=== PATIENT | male | born 1955 | race Caucasian/White ===

== ENCOUNTER 2021-12-26 18:03 | Emergency (ER) | payer MEDICARE ==
[~2021-12-26] VITALS: Ht 185.4 cm; Wt 122.5 kg
== END 2021-12-26 19:52 | disposition home or self-care (01) ==
LOC: ER 18:03
DX: U07.1 COVID-19 (principal)
CPT/HCPCS: 99282

== ENCOUNTER 2022-01-14 18:37 | Emergency (ER) | payer MEDICARE ==
[~2022-01-14] VITALS: Ht 185.4 cm; Wt 122.5 kg
[2022-01-14] MEDS ORDERED: METO100 PO (19:32)
[2022-01-14] MEDS ORDERED: Glucophage 850850 MG PO ×2 (19:32→19:46)
[2022-01-14] MEDS ORDERED: POTCHL20ER PO ×2 (19:33→19:46)
[2022-01-14] MEDS ORDERED: GLIP10 PO ×2 (19:33→19:46)
[2022-01-14] MEDS ORDERED: ATOR80 PO ×2 (19:34→19:46)
[2022-01-14] MEDS ORDERED: EUTHYROX50 MCG PO ×2 (19:34→19:46)
[2022-01-14] MEDS ORDERED: AMIT25 PO ×2 (19:34→19:46)
[2022-01-14] MEDS ORDERED: ZYRTEC10 M2 PO (19:35)
[2022-01-14] MEDS ORDERED: XARELTO20 MG PO (19:35)
[2022-01-14] MEDS ORDERED: Prinivil10 MG PO (19:35)
[2022-01-14] MEDS ORDERED: FURO40 PO (19:35)
[2022-01-14] MEDS ORDERED: LISI10 PO (19:46)
[2022-01-14] MEDS ORDERED: METO100ER PO (19:46)
== END 2022-01-14 20:12 | disposition home or self-care (01) ==
LOC: ER 18:37
DX: Z76.0 Encounter for issue of repeat prescription (principal); E11.9 Type 2 diabetes mellitus without complications; I50.9 Heart failure, unspecified; Z79.899 Other long term (current) drug therapy; Z79.01 Long term (current) use of anticoagulants; Z79.84 Long term (current) use of oral hypoglycemic drugs; Z88.2 Allergy status to sulfonamides
CPT/HCPCS: 99281

== ENCOUNTER 2022-04-06 13:14 | Inpatient (IN) | payer OTHER, MEDICARE ==
[~2022-04-06] VITALS: Ht 185.4 cm; Wt 125.5 kg
[~2022-04-06 13:14] MED LIST: AMIT25 PO; ATOR80 PO; EUTHYROX50 MCG PO; FURO40 PO; GLIP10 PO; Glucophage 850850 MG PO; LISI10 PO; METO100 PO; METO100ER PO; POTCHL20ER PO; Prinivil10 MG PO; XARELTO20 MG PO; ZYRTEC10 M2 PO
[2022-04-06 14:22] LABS: Influenza A, PCR NEGATIVE (NEGATIVE); Influenza B, PCR NEGATIVE (NEGATIVE); Resp Syncytial Virus, PCR NEGATIVE (NEGATIVE); SARS-Cov-2 (COVID-19) PCR, MMC NEGATIVE (NEGATIVE)
[2022-04-06 14:27] LABS: Hematocrit 37.3 % (37.0-53.0); Hemoglobin 11.8 g/dL (13.5-17.5); Mean Corpuscular HGB Conc 31.6 g/dL (31.5-36.5); Mean Corpuscular Volume 76 fL (80-100); Mean Platelet Volume 11.9 fL (9.1-12.4); Platelet Count 190 K/mm3 (150-400); RDW Standard Deviation 43.8 fL (35.1-46.3); Red Blood Cell Count 4.91 M/mm3 (4.30-5.90); White Blood Cell Count 24.95 K/mm3 (4.00-11.30)
[2022-04-06 14:41] LABS: Albumin, Blood 3.6 g/dL (3.4-5.0); Albumin/Globulin Ratio 0.9 (0.8-1.8); Bun/Creatinine Ratio 24.1 (12.0-20.0); Calcium, Blood 8.9 mg/dL (8.5-10.1); Creatinine, Blood 0.91 mg/dL (0.60-1.20); Potassium, Blood 4.5 mmol/L (3.5-5.5); Total Protein, Blood 7.6 g/dL (6.4-8.2)
[2022-04-06 14:57] LABS: BAND PERCENT MAN 4 % (0-8); BASOPHILS PERCENT MAN 0 % (0-2); EOSINOPHILS PERCENT MAN 0 % (0-6); LYMPHOCYTES ABSOLUTE MAN 5.23 K/mm3 (0.84-5.20); LYMPHOCYTES PERCENT MAN 21 % (21-46); MONOCYTES ABSOLUTE MAN 0.99 K/mm3 (0.16-1.47); MONOCYTES PERCENT MAN 4 % (4-13); NEUTROPHILS ABSOLUTE MAN 18.71 K/mm3 (1.96-9.15); SEG NEUTROPHILS PERCENT MAN 71 % (41-73); TOTAL CELLS COUNTED 100
[2022-04-07 03:54] LABS: Hematocrit 31.6 % (37.0-53.0); Hemoglobin 10.1 g/dL (13.5-17.5); Mean Corpuscular HGB 24.3 pg (26.0-34.0); Mean Corpuscular Volume 76 fL (80-100); Mean Platelet Volume 11.7 fL (9.1-12.4); Platelet Count 147 K/mm3 (150-400); RDW Coefficient Variation 16.2 % (11.7-14.2); RDW Standard Deviation 44.6 fL (35.1-46.3); Red Blood Cell Count 4.15 M/mm3 (4.30-5.90); White Blood Cell Count 25.75 K/mm3 (4.00-11.30)
[2022-04-07 04:18] LABS: Bun/Creatinine Ratio 23.1 (12.0-20.0); Calcium, Blood 8.3 mg/dL (8.5-10.1); Creatinine, Blood 1.21 mg/dL (0.60-1.20); Potassium, Blood 3.9 mmol/L (3.5-5.5); Thyroid Stimulating Hormone 0.508 uIU/mL (0.360-4.800)
--- NOTE | 2022-04-07 05:35 | NUR ---
SHIFT SUMMARY ASSUMED CARE OF PT AT 1900. PT IS A/OX4 BUT SLOW TO RESPOND. PT THINKS HE HAS AUTISM AND HAS PROBLEMS REMEMBERING THINGS LATELY. LUNG SOUNDS CLEAR AND DIMINISHED AT APEXES. PT WAS ON 3L NC WHILE AWAKE. PT HOME CPAP SET UP BY RT. PT DESATURATED WHILE ON IT, RT PLACED PT ON OXYGEN ALSO WHILE SLEEPING. PT HAS A WET NONPRODUCTIVE COUGH. PT C/O SUDDEN ABD PAIN AT 0400 THIS AM, MEDICATED PER EMAR. PT STATES HE HAD THIS SAME PAIN A COUPLE DAYS AGO AND IT JUST WENT AWAY ON ITS OWN. PT WAS ABLE TO URINATE 500CC THIS SHIFT AFTER SITTING ON TOILET. PT IS A 1P SBA TO BATHROOM WITH CANE. PT SLEPT MOST OF THE NIGHT.
[2022-04-07] MEDS ORDERED: THERA-D2000 UNIT PO (08:03)
--- NOTE | 2022-04-07 10:06 | NUR ---
AM NOTE: PATIENT ALERT AND ORIENTED X4. NUMBNESS/TINGLING TO BLE. UP WITH ONE PERSON ASSIST WITH CANE TO BATHROOM. OVERALL SLIGHTLY WEAK AND SOB UPON EXCERTION. TELE SHOWING SINUS RHYTHM WITH HR 80-90'S. BP STABLE. PPP. EDEMA TO BLE. DENIES CHEST PAIN/PRESSURE/PALPITATIONS. ON 3-4L NASAL CANNLA SATING LOW-MID 90'S. WEARING HOME CPAP WHEN SLEEPING WITH 3L BLEED IN. NO O2 NORMALLY AT BASELINE. LUNGS SOUNDING CLEAR AND DIM. NO WHEEZES OR CRACKLES HEARD. SOB WHEN MOVING AND UP OUT OF BED. DENIES ABDOMINAL PAIN/NAUSEA. TOLERATING PO DIET. DRINKING FLUIDS. UP TO BATHROOM TO VOID. NO BOWEL MOVEMENT YET. IN RULE OUT GI ISO. ECHO COMPLETED THIS AM, RESULTS PENDING. MED REC COMPLETED AND ACCURATE. CALL LIGHT IN REACH. WILL CONTINUE TO MONITOR.
--- NOTE | 2022-04-07 12:47 | NUR ---
CALL PLACED TO DR. DICKINSON TO UPDATE ON MICRO RESULTS. NO NEW ORDERS FOR THIS RN TO PLACE. PATIENT VITALS CONTINUE TO BE STABLE. WORKED WITH OT THIS AFTERNOON. BLOOD SUGARS REMAIN HIGH DESPITE AC INSULIN. DENIES PAINS. EATING LUNCH AT THIS TIME, SITTING ON EDGE OF BED. WILL CONTINUE TO MONITOR.
--- NOTE | 2022-04-07 15:50 | NUR ---
Care Approval Patient rony Toro student nurse provide care during clinical.
[2022-04-07] MEDS ORDERED: COMBIVENT RESPIM4 G1 (18:18)
[2022-04-07] MEDS ORDERED: HUMULIN N100 UNIT/6 SC (18:23)
[2022-04-07] MEDS ORDERED: COMBIVENT RESPIM4 G1 INH (18:24)
[2022-04-07] MEDS ORDERED: Ventolin/Prove6.7 GM INH (18:25)
--- NOTE | 2022-04-07 18:36 | NUR ---
SHIFT SUMMARY: PATIENT REMAINS ALERT AND ORIENTED. NO ACUTE CHANGES THROUGHOUT SHIFT. REMAINS ON 3L NASAL CANNULA SATING MID 90'S. WEARING HOME CPAP WHEN SLEEPING WITH 3L BLEED IN. TELE REMAINS SINUS RHYTHM WITH HR 70-90'S. BP REMAINS STABLE. CONTINUES TO DENY CHEST PAIN/PRESSURE. IV DIUERTICS GIVEN WITH GOOD RESULT. URINE OUTPUT 1250ML THIS SHIFT. BLOOD SUGARS ELEVATED, PATIENT STATES HIS SUGARS AT HOME HAVE BEEN ELEVATED WELL. HOME MEDS ALL RECONCILED. SON IN TO DROP OFF HOME INHALERS. EATING DINNER AT THIS TIME, DENIES NEEDS. WILL CONTINUE TO MONITOR AND REPORT OFF TO ONCOMING RN. CALL LIGHT IN REACH.
--- NOTE | 2022-04-07 21:56 | NUR ---
ASSUMPTION OF CARE THIS RN ASSUMED CARE OF PATIENT AT 1900. REPORT TAKEN FROM MARE RN. PATIENT ON 4L OF O2 VIA NC WITH O2 SATS AT 100% AT TIME OF SHIFT CHANGE. THIS RN DECREASED O2 TO 3L; O2 SATS REMAINED >94%. VITALS STABLE. PREVIOUS RN REPORTED TO THIS RN THAT THE PATIENT HAS RETENTION IF HE IS NOT SITTING ON THE TOILET TO VOID. THIS RN HAS ASKED PATIENT ON SEVERAL OCCASIONS DURING ROUNDS SO FAR THIS SHIFT TO GO TO THE RESTROOM TO TRY TO VOID BUT PATIENT DENIES NEED, DESPITE LASIX ADMINISTRATION. PATIENT APPEARS TO HAVE FLAT AFFECT WITH CONVERSATION. PATIENT DENIES PAIN AT THIS TIME. MEDICATED PER EMAR. ENTERIC ISOLATION PRECAUTIONS IN PLACE; NO STOOL SAMPLE RECEIVED YET. PATIENT ASSISTED WITH HOME CPAP WITH 3L BLEED IN. PATIENT APPEARS TO BE RESTING AT THIS TIME WITH BED IN LOWEST POSITION AND CALL LIGHT WITHIN REACH. THIS RN WILL REVIEW CHART AND CONTINUE TO MONITOR PATIENT AND PROVIDE INTERVENTIONS ORDERED/NEEDED.
--- NOTE | 2022-04-08 04:32 | NUR ---
SHIFT SUMMARY PATIENT ALERT AND ORIENTED X4. CALM AND COOPERATIVE WITH CARE. FLAT AFFECT NOTED WITH LITTLE INTEREST IN CONVERSATION AND SHORT REPLIES. NO NOTED FORGETFULNESS NOTED BY THIS RN. NO ACUTE EVENTS DURING THIS SHIFT. VITALS STABLE. CPAP WITH 3L BLEED IN USED THROUGHOUT THE SHIFT. PATIENT ON 3L VIA NC WHEN AWAKE. O2 SATS >92%. PATIENT DENIES CHEST PAIN/PRESSURE. MEDICATED PER EMAR. PATIENT ABLE TO REPOSITION SELF IN BED INDEPENDENTLY. CALLS STAFF APPROPRIATELY. GI CDIFF PANEL DC'D; ENTERIC ISOLATION PRECAUTIONS DC'D; NO BM'S THIS SHIFT. PATIENT APPEARS TO BE RESTING AT THIS TIME. BED IN LOWEST POSITION AND CALL LIGHT WITHIN REACH. THIS RN WILL CONTINUE TO MONITOR UNTIL SHIFT CHANGE AT 0700.
[2022-04-08 04:39] LABS: Base Excess Venous 2.1 mmol/L; Bicarbonate Venous 25.7 mmol/L (24.0-30.0); PCO2 Venous 39.4 mmHg (38-42); pH Blood Venous 7.43 (7.34-7.37)
[2022-04-08 04:44] LABS: Hematocrit 37.4 % (37.0-53.0); Hemoglobin 11.2 g/dL (13.5-17.5); Mean Corpuscular HGB 23.2 pg (26.0-34.0); Mean Corpuscular HGB Conc 29.9 g/dL (31.5-36.5); Mean Corpuscular Volume 78 fL (80-100); Mean Platelet Volume 11.6 fL (9.1-12.4); Platelet Count 146 K/mm3 (150-400); RDW Coefficient Variation 16.1 % (11.7-14.2); RDW Standard Deviation 45.6 fL (35.1-46.3); Red Blood Cell Count 4.82 M/mm3 (4.30-5.90); White Blood Cell Count 17.18 K/mm3 (4.00-11.30)
[2022-04-08 05:07] LABS: Bun/Creatinine Ratio 31.6 (12.0-20.0); Calcium, Blood 8.8 mg/dL (8.5-10.1); Creatinine, Blood 0.98 mg/dL (0.60-1.20); Potassium, Blood 3.8 mmol/L (3.5-5.5)
[2022-04-08 06:50] LABS: BAND PERCENT MAN 4 % (0-8); BASOPHILS PERCENT MAN 0 % (0-2); EOSINOPHILS ABSOLUTE MAN 0.17 K/mm3 (0.00-0.68); EOSINOPHILS PERCENT MAN 1 % (0-6); LYMPHOCYTES ABSOLUTE MAN 5.84 K/mm3 (0.84-5.20); LYMPHOCYTES PERCENT MAN 34 % (21-46); MONOCYTES ABSOLUTE MAN 0.68 K/mm3 (0.16-1.47); MONOCYTES PERCENT MAN 4 % (4-13); NEUTROPHILS ABSOLUTE MAN 10.47 K/mm3 (1.96-9.15); SEG NEUTROPHILS PERCENT MAN 57 % (41-73); TOTAL CELLS COUNTED 100
--- NOTE | 2022-04-08 18:02 | NUR ---
SHIFT SUMMARY PT A/OX4 AND COOPERATIVE OF CARE. PT HAS FLAT AFFECT. VSS THROUGHOUT SHIFT WITH 02 SATS >94% ON 1-3 L NC. NO REPORT OF CHEST PAIN/PRESSURE THROUGHOUT SHIFT. NO REPORT OF SOB/DYSPNEA THROUGHOUT SHIFT. PT UP TO THE BATHROOM MULTIPLE TIMES USING A CANE, TOLERATED WELL, 1 PERSON ASSIST. PT BLOOD SUGARS ELEVATED THROUGHOUT SHIFT, PT EDUCATED BY DR AND RN OF WAYS TO CONTROL DIABETES WITH FOOD AND EXERCISE, PT RECEPTIVE. NO ACUTE CHANGES DURING SHIFT. PT CONTINUES TO RECIEVE DIURECTICS, EDUCATED ON SAFETY AND FALL RISKS.
[2022-04-09 04:39] LABS: BASOPHILS ABSOLUTE AUTO 0.05 K/mm3 (0.00-0.23); BASOPHILS PERCENT AUTO 0 % (0-2); EOSINOPHILS ABSOLUTE AUTO 0.22 K/mm3 (0.00-0.68); EOSINOPHILS PERCENT AUTO 2 % (0-6); Hematocrit 35.1 % (37.0-53.0); Hemoglobin 10.9 g/dL (13.5-17.5); Mean Corpuscular HGB Conc 31.1 g/dL (31.5-36.5); Mean Corpuscular Volume 77 fL (80-100); Mean Platelet Volume 10.9 fL (9.1-12.4); Platelet Count 176 K/mm3 (150-400); RDW Coefficient Variation 15.7 % (11.7-14.2); RDW Standard Deviation 43.8 fL (35.1-46.3); Red Blood Cell Count 4.55 M/mm3 (4.30-5.90); White Blood Cell Count 13.06 K/mm3 (4.00-11.30)
[2022-04-09 04:48] LABS: IMMATURE GRAN ABSOLUTE AUTO 0.08 K/mm3 (0.00-0.10); IMMATURE GRAN PERCENT AUTO 1 % (0-1); LYMPHOCYTES ABSOLUTE AUTO 4.65 K/mm3 (0.84-5.20); LYMPHOCYTES PERCENT AUTO 36 % (21-46); MONOCYTES ABSOLUTE AUTO 0.67 K/mm3 (0.16-1.47); MONOCYTES PERCENT AUTO 5 % (4-13); NEUTROPHILS ABSOLUTE AUTO 7.39 K/mm3 (1.96-9.15); NEUTROPHILS PERCENT AUTO 57 % (41-73)
[2022-04-09 04:58] LABS: Bun/Creatinine Ratio 33.6 (12.0-20.0); Calcium, Blood 9.2 mg/dL (8.5-10.1); Creatinine, Blood 0.77 mg/dL (0.60-1.20); Percent Saturation 9.2 % (20.0-50.0); Potassium, Blood 4.1 mmol/L (3.5-5.5)
--- NOTE | 2022-04-09 05:04 | NUR ---
SHIFT SUMMARY PT A&Ox4, CALLS AND COMMUNICATES NEEDS APPROPRIATELY. VSS, BP STABLE, PT REMAINED MEDICAL STATUS WITH NO TELE, DENIES CP/PRESSURE. SpO2> 92% ON 2L VIA NC/CPAP WITH 3L BLEED IN, DENIES SOB. PT AMBULATED TO BATHROOM WITH CANE AND SBA. PT RESTED COMFORTABLY THROUGHOUT THE NIGHT. NO ACUTE EVENTS THIS SHIFT, WILL REPORT TO DAY SHIFT RN.
--- NOTE | 2022-04-09 12:32 | NUR ---
ASSUMPTION OF CARE: NEURO: FLAT AFFECT, ALERT AND ORIENTED. COOPERATIVE WITH CARE AND POLITE. HAS SOME NEUROPATHY IN BILATERAL FEET. CARDIAC: DENIES CHEST PAIN/PRESSURE OR SOB AT REST. IMPROVING EXERTIONAL DYSPNEA. NORMOTENSIVE FOR PATIENTS NORMAL LIMIT. PULM: CURRENLTY ON 1-3L VIA NC DEPENDING ON EXERTIONAL LEVEL. PATIENT SPO2 >94% , PROVENTIL UPDRAFT ORDERED BY HOSPITALIST. RT NOTIFIED. IMPROVING LUNG SOUNDS. CXR SCHEDULED FOR TOMORROW AM. LABS: PATIENT HAVING INCREASED CBG, INCREASE TO SS WAS PUT IN BY HOSP AND INCREASE TO BASAL INSULIN. WELL. PATIENT HAS BEEN COOPERATIVE WITH CARE AND DUE TO IRON DEFICIENCY WILL BE RECIEVING SOD FERR GLU INFUSIONS FOR TODAY AND TOMORROW THAN SHOULD BE DISCHARGED ACCORDING TO HOSPITALIST. GI/: SOME DIFFICULTY WITH STARTING A STREAM, WILL CONTINUE TO MONITOR, DIURETICS HAVE BEEN SWITCHED TO PO VS IV. CONCERNS: PATIENT AND THIS GLOBAL ANALYTICS HEAD HAVE ADDRESSED ALL CONCERNS AT TIME OF THIS NOTE WILL CONTINUE TO MONITOR UNTIL SHIFT CHANGE.
--- NOTE | 2022-04-09 14:12 | NUR ---
END OF SHIFT: PATIENT DENIES ANY IDANIA PAIN/PRESSURE, AND SOB. PATIENT HAS BEEN COOPERATIVE WITH CARE ALERT AND ORIENTED WITH NO CONCERNS AT THIS TIME. PATIENT HAS BEEN IN NO SIGN OF RESPIRATORY DISTRESS, SPO2>96 SPO2 ON RA. PATIENT ENDORSES NO CONCERNS AT THIS TIME. PLAN: CXR IN THE AM AND 1 MORE DOSE OF SOD FERR GLU, AND IF EVERYTHING IS STILL IMPROVING AND CXR NOT SHOWING ANYTHING ADVENTAGIOUS PLAN FOR DISCHARGE AFTER INFUSION. PATIENT AGREEABLE TO PLAN, NO CONCERNS AT THIS TIME.
[2022-04-10 04:35] LABS: BASOPHILS ABSOLUTE AUTO 0.08 K/mm3 (0.00-0.23); BASOPHILS PERCENT AUTO 1 % (0-2); EOSINOPHILS ABSOLUTE AUTO 0.19 K/mm3 (0.00-0.68); EOSINOPHILS PERCENT AUTO 2 % (0-6); Hematocrit 34.6 % (37.0-53.0); Hemoglobin 10.9 g/dL (13.5-17.5); IMMATURE GRAN ABSOLUTE AUTO 0.08 K/mm3 (0.00-0.10); IMMATURE GRAN PERCENT AUTO 1 % (0-1); Mean Corpuscular HGB 23.9 pg (26.0-34.0); Mean Corpuscular HGB Conc 31.5 g/dL (31.5-36.5); Mean Corpuscular Volume 76 fL (80-100); Mean Platelet Volume 11.1 fL (9.1-12.4); NEUTROPHILS ABSOLUTE AUTO 5.98 K/mm3 (1.96-9.15); NEUTROPHILS PERCENT AUTO 49 % (41-73); Platelet Count 194 K/mm3 (150-400); RDW Coefficient Variation 15.5 % (11.7-14.2); RDW Standard Deviation 42.9 fL (35.1-46.3); Red Blood Cell Count 4.56 M/mm3 (4.30-5.90); White Blood Cell Count 12.19 K/mm3 (4.00-11.30)
[2022-04-10 04:43] LABS: LYMPHOCYTES ABSOLUTE AUTO 4.01 K/mm3 (0.84-5.20); LYMPHOCYTES PERCENT AUTO 33 % (21-46); MONOCYTES ABSOLUTE AUTO 1.85 K/mm3 (0.16-1.47); MONOCYTES PERCENT AUTO 15 % (4-13)
[2022-04-10 04:57] LABS: Calcium, Blood 9.1 mg/dL (8.5-10.1); Creatinine, Blood 0.76 mg/dL (0.60-1.20); Potassium, Blood 4.4 mmol/L (3.5-5.5)
--- NOTE | 2022-04-10 05:01 | NUR ---
CARE ASSUMPTION/SHIFT SUMMARY RECEIVED REPORT FROM RICKY Gonzalez RN AT APPROX 0400. PT ALERT AND ORIENTED X4, ABLE TO FOLLOW COMMANDS AND MAKE NEEDS KNOWN, BP AND HR STABLE, AFEBRILE, PT CURRENTLY ON CPAP WITH 3 LITER BLEED IN. RESPIRATIONS EVEN AND UNLABORED. CBG RANGED FROM 290-350, CALL PLACED TO MD, NO NEW ORDERS RECEIVED. PT REPOS IND IN BED. BED IN LOW, CALL LIGHT IN REACH, WILL REPORT TO ONCOMING RN.
--- NOTE | 2022-04-10 08:15 | NUR ---
INITIAL ASSESSMENT: Patient is awake, alert and oriented. He is sitting on the edge of the bed playing on his phone. He denies pain at this time. 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 VSS. Biox is WNL on 1L O2 via NC. BT+, pt denies nausea, he reports that he has been having some loose stools but that is normal for him. PPP, he has a purplish discoloration to BLE and skin is cool. He has clubbing to both hands/fingers. AM meds given at this time. CBG 265 this AM, 9 units high s/s coverage provided. Patient denies other needs at this time. Call light in reach.
--- NOTE | 2022-04-10 17:51 | NUR ---
SUMMARY: Patient has been alert and oriented t/o the shift. He reports chronic neuropahty in his feet and intermittently in his hands. HRR LS Dim with some fine crackles in the bases. There were several unsuccessful attempts to wean patient off oxygen onto room air, he is now 91% on RA. BT+, pt states he has been having diarrhea but this is chronic. Chest CT ordered, MD ordering f/u abd CT for some abnormal results. CBG have been in the high 200s t/o the shift, pt is on high s/s and had an increase in his long acting insulin last night. MD aware. No acute changes this shift. Report has been given to Alivia on Medical floor patient will transfer to [facility].
--- NOTE | 2022-04-10 18:36 | NUR ---
pt arrived to 363 via wheelchair from PCU, report obtained from Mindy CHAVEZ, he is sitting up on the side of the bed, ambulates indep with a cane, has his call light in reach, is settled in room, notified RT to set up continuous ox as hes on cpap.
--- NOTE | 2022-04-11 04:28 | NUR ---
SHIFT SUMMARY A/O X4- IND IN THE ROOM. VITAL SIGNS STABLE, REMAINS ON 2L NC W/ SATURATIONS ABOVE 90%- NO REPORT OF SOB OR CHEST PAIN/PRESSURE. VOIDING WELL, NO REPORT OF BOWEL MOVEMENT THIS EVENING. NO PAIN REPORTED. PLEASANT AND COOPERATIVE W/ CARE, WILL CONTINUE TO MONITOR AND REPORT TO ONCOMING RN.
[2022-04-11 05:36] LABS: Hematocrit 39.4 % (37.0-53.0); Mean Corpuscular HGB 23.3 pg (26.0-34.0); Mean Corpuscular HGB Conc 30.5 g/dL (31.5-36.5); Mean Corpuscular Volume 77 fL (80-100); Mean Platelet Volume 11.8 fL (9.1-12.4); Platelet Count 220 K/mm3 (150-400); RDW Coefficient Variation 15.5 % (11.7-14.2); RDW Standard Deviation 42.7 fL (35.1-46.3); Red Blood Cell Count 5.15 M/mm3 (4.30-5.90)
[2022-04-11 05:48] LABS: Bun/Creatinine Ratio 29.2 (12.0-20.0); Calcium, Blood 9.6 mg/dL (8.5-10.1); Creatinine, Blood 0.75 mg/dL (0.60-1.20); Potassium, Blood 4.3 mmol/L (3.5-5.5)
--- NOTE | 2022-04-11 18:39 | NUR ---
SHIFT SUMMARY- PT IS A/O, PLESANT AND COOPERATIVE. HE IS EATING AND DRINKING WELL. HE WENT FOR A CT W/ CONTRAST THIS AFTERNOON. HE SLEPT FOR THE AFTERNOON POST CT. HE IS ABLE TO REPOSITION HIMSELF IN THE BED AND IS UP FOR MEALS. HIS BED IS IN THE LOW POSITION AND CALL LIGHT IS WITHIN REACH.
--- NOTE | 2022-04-12 05:01 | NUR ---
SHIFT SUMMARY 67 YR M ADMITTED ON 04/06/22 FOR RESPIRATORY FAILURE/PNEUMONIA. FULL CODE. NO ACUTE CHANGES THIS SHIFT. PT IS PLEASANT AND COOPERATIVE WITH CARE. HE PUT ON HIS OWN CPAP WHEN HE WAS READY FOR BED AND WENT TO BED ON HIS OWN.HE IS INDEPENDANT IN THE ROOM AND IS ABLE TO MAKE HIMSELF COMFORTABLE IN BED. NO C/O PAIN THIS SHIFT. USES CALL LIGHT APPROPRIATELY.
[2022-04-12 14:31] LABS: International Normalized Ratio 1.04; Prothrombin Time Results 10.9 Sec (9.7-11.5)
--- NOTE | 2022-04-12 18:52 | NUR ---
SHIFT SUMMARY PATIENT ALERT AND ORIENTED AND INDEPENDENT IN ROOM. TOLERATING ADA DIET AND LIQUIDS. ACHS COVERED PER SS. 2L O2 VIA NC, WEARS CPAP AT NIGHT WITH 2L BLEED IN. WEANED FROM 5L AT START OF SHIFT. USES URINAL TO VOID.
--- NOTE | 2022-04-13 05:02 | NUR ---
SHIFT SUMMARY: PT IS ALERT AND ORIENTED. PT IS CALM AND COOPERATIVE WITH CARE. PT CALLS APPROPRIATELY. PT IS INDEPENDENT IN THE ROOM. PT REPORTS SOB UPON EXERTION, SATS > 90% ON 2 L. PT DENIES PAIN, NAUSEA, AND VOMITING. PT SLEPT MUCH OF THE NIGHT WHEN NOT DISTURBED. NO ACUTE CHANGES OR COMPLICATIONS OVERNIGHT. BED IN LOW POSITION, CALL LIGHT WITHIN REACH. WILL REPORT TO DAY NURSE.
--- NOTE | 2022-04-13 16:15 | NUR ---
POST-BIOPSY: PATIENT BACK FROM BIOPSY. RT AT BEDSIDE TO PERFORM HOME O2 EVALUATION. CARE MANAGEMENT HAS BEEN NOTIFIED AND IS WORKING ON SETTING UP HOME O2 FOR DISCHARGE TODAY. SITE OF BIOPSY IS COVERED WITH A BANDAID. DRESSING IS C/D/I. SURROUNDING TISSUE IS SOFT AND NON-TENDER.
[2022-04-13] MEDS ORDERED: TORSE20 PO (17:19)
[2022-04-13] MEDS ORDERED: ASPI81CH PO (17:21)
[2022-04-13] MEDS ORDERED: METO100ER PO (17:21)
[2022-04-13] MEDS ORDERED: BASAGLAR K100 UNIT/6 SC (17:22)
[2022-04-13] MEDS ORDERED: SPIR25 PO (17:23)
--- NOTE | 2022-04-13 17:46 | NUR ---
CARE CONSULT WITH RN AND WEB PUBLISHER, PLAN TO DC PT BENSON. MET WITH PT, TO OFFER SUPPORT AND ANSWER ANY QUESTIONS HE MAY HAVE ABOUT HIS DC, PROGNOSIS AND NEEDS AFTER HE GETS HOME. PT REPORTS THAT HE IS FEELIGN A LITTLE ANXIOUS ABOUT THE BIOPSY THAT WAS JUST DONE. HE REPORTS THAT HIS FATHER OF THE SAME CANCER, BUT IN A DIFFERENT LOCATION. HE STATES HE IS NOT AFRAID TO , BUT WORRIED ABOUT WHAT THE RESULTS WILL BE AND WONT HAVE THEM FOR A COUPLE OF WEEKS. HE ALSO VERBALIZES HIS WORRY ABOUT CARE WHEN HE GETS HOME AND LITTLE SUPPORT. HE LIVES WITH HIS AUTISTIC SON, WORRIES ABOUT MONEY AND RESOURCES. PT IS A [facility], [facility]IBLE [facility]HT [facility] FOR [facility], TEST STRIPS OR CARE NEEDS. WILL FOLLOW UP WITH LIFT DRIVER FOR ADDITIONAL INFO AND THEN ADVISED THE PATIENT THAT I WILL LET CALL HIM AT HOME WITH AN UPDATE. DISCUSSED WITH PT THAT HE WOULD BENEFIT FROM OUTPT PALLIATIVE CARE AND HE IS AGREEABLE TO THIS. PT REPORTS THAT HE DIESNT WANT TO CONTINUE TAKING ONE OF HIS DIABETIC MEDICATIONS R/T INCREASED URINATION AT NIGHT. CONCERNS FOR HIGH RISK FOR READMISSION AND HAVE REQUESTED OUT PT PALLIATIVE CARE CONSULT/VISIT WITHIN THE NEXT 24-48 HOURS TO HOPEFULLY AVOID THIS. REFERRAL AND DOCUMENTS FAXED TO [facility] WITH PTS CONSENT AND HE IS LOOKING FORWARD TO THIS ADDITIONAL SUPPORT. ALL OTHER QUESTIONS/CONCERNS ADDRESSED, WILL FOLLOW UP WITH CARE MANAGEMENT AND PT TOMORROW. PT IS AGREEABLE TO THIS PLAN.
--- NOTE | 2022-04-13 19:41 | NUR ---
DISCHARGE SUMMARY: LATE ENTRY 1844 PATIENT DENIED DIFFICULTY BREATHING OR SHORTNESS OF BREATH THROUGHOUT THE SHIFT. PATIENT UP TO THE BATHROOM WITH CANE INDEPENDENTLY. PATIENT STEADY ON FEET. NO DESATURATION NOTED WITH O2 VIA NC AND ACTIVITY. PATIENT DENIED SHORTNESS OF BREATH WITH ACTIVITY. PATIENT REPORTED PAIN IN BILATERAL FEET. MEDICATED PER PRNS FOR RELIEF. PATIENT HAS AN EXCELLENT APPETITE. PATIENT DENIED NAUSEA, VOMITING OR DIARRHEA. PATIENT WAS ABLE TO HAVE A BOWEL MOVEMENT THIS MORNING. PER MD ORDERS, PATIENT READY FOR DISCHARGE. DISCHARGE RX FAXED TO [facility] PER PATIENT REQUEST. DISCHARGE INSTRUCTIONS AND EDUCATION PROVIDED TO THE PATIENT. ALL QUESTIONS AND CONCERNS ADDRESSED. PATIENT DISCHARGED WITH SON IN WHEEL CHAIR. PATIENT STABLE AT TIME OF DISCHARGE.
== END 2022-04-13 19:01 | disposition home or self-care (01) | DRG 853 ==
LOC: ER 13:14 → MEDS 17:01 → ERHOLD 17:01 → PCU 19:11 → MEDS 04-10 18:24
PROVIDERS: Internal Medicine; Physician Assistant; ADMIT Internal Medicine
PROC: 07B63ZX Excision of Left Axillary Lymphatic, Percutaneous Approach, Diagnostic (ICD-10-PCS; principal; 2022-04-13)
PROC: 3E02340 Introduction of Influenza Vaccine into Muscle, Percutaneous Approach (ICD-10-PCS; 2022-04-13)
PROC: 3E03329 Introduction of Other Anti-infective into Peripheral Vein, Percutaneous Approach (ICD-10-PCS; 2022-04-13)
DX: A41.9 Sepsis, unspecified organism (principal); I50.33 Acute on chronic diastolic (congestive) heart failure; J18.9 Pneumonia, unspecified organism; J96.01 Acute respiratory failure with hypoxia; E87.20 Acidosis, unspecified; C91.10 Chronic lymphocytic leukemia of B-cell type not having achieved remission; R65.20 Severe sepsis without septic shock; Z20.822 Contact with and (suspected) exposure to COVID-19; K21.9 Gastro-esophageal reflux disease without esophagitis; Z23 Encounter for immunization; E11.40 Type 2 diabetes mellitus with diabetic neuropathy, unspecified; G47.33 Obstructive sleep apnea (adult) (pediatric); I48.0 Paroxysmal atrial fibrillation; R19.7 Diarrhea, unspecified; G31.84 Mild cognitive impairment of uncertain or unknown etiology; R77.8 Other specified abnormalities of plasma proteins; D50.9 Iron deficiency anemia, unspecified; I27.20 Pulmonary hypertension, unspecified; Z99.89 Dependence on other enabling machines and devices; Z88.2 Allergy status to sulfonamides; Z79.01 Long term (current) use of anticoagulants; Z79.84 Long term (current) use of oral hypoglycemic drugs; Z79.899 Other long term (current) drug therapy
CPT/HCPCS: 0241U; 36415; 38505; 71045; 71046; 71260; 74178; 76942; 80048; 80053; 82728; 82803; 82947; 83036; 83540; 83550; 83605; 83880; 84145; 84443; 84484; 85025; 85027; 85610; 85730; 87040; 88305; 88341; 88342; 90686; 93005; 93010; 93306; 94640; 94660; 94664; 94761; 94762; 96365; 96367; 96375; 97110; 97129; 97130; 97165; 97530; 97535; 99285-25; A9270; J0456; J0696; J1815; J1940; J2916; J7050; Q9967

== ENCOUNTER 2022-12-14 18:19 | Observation (INO) | payer OTHER ==
[~2022-12-14] VITALS: Ht 185.4 cm; Wt 113.8 kg
[~2022-12-14 18:19] MED LIST changes: +ASPI81CH PO; +BASAGLAR K100 UNIT/6 SC; +COMBIVENT RESPIM4 G1; +COMBIVENT RESPIM4 G1 INH; +HUMULIN N100 UNIT/6 SC; +SPIR25 PO; +THERA-D2000 UNIT PO; +TORSE20 PO; +Ventolin/Prove6.7 GM INH
[2022-12-14 18:58] LABS: Hemoglobin 14.2 g/dL (13.5-17.5); Mean Corpuscular HGB 27.3 pg (26.0-34.0); Mean Corpuscular HGB Conc 33.8 g/dL (31.5-36.5); Mean Corpuscular Volume 81 fL (80-100); Mean Platelet Volume 12.1 fL (9.1-12.4); Platelet Count 199 K/mm3 (150-400); RDW Coefficient Variation 14.4 % (11.7-14.2); RDW Standard Deviation 42.1 fL (35.1-46.3)
[2022-12-14 19:15] LABS: Magnesium, Blood 2.1 mg/dL (1.6-2.4)
[2022-12-14] MEDS ORDERED: FAMO20 (19:16)
[2022-12-14] MEDS ORDERED: VENLAFAXINE 75 MG (19:17)
[2022-12-14 19:24] LABS: Albumin, Blood 3.6 g/dL (3.4-5.0); Bilirubin, Total 0.6 mg/dL (0.1-1.0); Calcium, Blood 9.1 mg/dL (8.5-10.1); Globulin, Blood 3.5 g/dL (2.2-4.0); Potassium, Blood 4.6 mmol/L (3.5-5.5); Total Protein, Blood 7.1 g/dL (6.4-8.2)
[2022-12-14 19:27] LABS: International Normalized Ratio 0.95
[2022-12-14 20:50] LABS: BASOPHILS PERCENT MAN 0 % (0-2); EOSINOPHILS PERCENT MAN 0 % (0-6); LYMPHOCYTES ABSOLUTE MAN 8.83 K/mm3 (0.84-5.20); LYMPHOCYTES PERCENT MAN 57 % (21-46); MONOCYTES ABSOLUTE MAN 0.77 K/mm3 (0.16-1.47); MONOCYTES PERCENT MAN 5 % (4-13); NEUTROPHILS ABSOLUTE MAN 5.89 K/mm3 (1.96-9.15); SEG NEUTROPHILS PERCENT MAN 38 % (41-73); TOTAL CELLS COUNTED 100
[2022-12-15 00:16] LABS: Anti-Xa UFH, PHA Monitoring <0.10 IU/mL
[2022-12-15 01:01] VITALS: BP 104/57
[2022-12-15 04:30] VITALS: BP 119/71
[2022-12-15 04:48] LABS: Hematocrit 38.4 % (37.0-53.0); Hemoglobin 13.1 g/dL (13.5-17.5); Mean Corpuscular HGB 27.4 pg (26.0-34.0); Mean Corpuscular HGB Conc 34.1 g/dL (31.5-36.5); Mean Corpuscular Volume 80 fL (80-100); Mean Platelet Volume 11.3 fL (9.1-12.4); Platelet Count 174 K/mm3 (150-400); RDW Coefficient Variation 14.4 % (11.7-14.2); Red Blood Cell Count 4.78 M/mm3 (4.30-5.90); White Blood Cell Count 17.23 K/mm3 (4.00-11.30)
[2022-12-15 05:18] LABS: Albumin, Blood 3.1 g/dL (3.4-5.0); Bilirubin, Total 0.3 mg/dL (0.1-1.0); Bun/Creatinine Ratio 23.3 (12.0-20.0); Creatinine, Blood 0.86 mg/dL (0.60-1.20); Globulin, Blood 3.2 g/dL (2.2-4.0); Potassium, Blood 4.4 mmol/L (3.5-5.5); Total Protein, Blood 6.3 g/dL (6.4-8.2)
[2022-12-15 05:46] LABS: BASOPHILS ABSOLUTE MAN 0.17 K/mm3 (0.00-0.23); BASOPHILS PERCENT MAN 1 % (0-2); EOSINOPHILS ABSOLUTE MAN 0.34 K/mm3 (0.00-0.68); EOSINOPHILS PERCENT MAN 2 % (0-6); LYMPHOCYTES % ATYPICAL MANUAL 1 % (0-0); LYMPHOCYTES ABSOLUTE MAN 9.64 K/mm3 (0.84-5.20); LYMPHOCYTES PERCENT MAN 55 % (21-46); MONOCYTES PERCENT MAN 7 % (4-13); MYELOCYTE ABSOLUTE MAN 0.34 K/mm3 (0.00-0.00); MYELOCYTE PERCENT MAN 2 % (0-0); NEUTROPHILS ABSOLUTE MAN 5.51 K/mm3 (1.96-9.15); SEG NEUTROPHILS PERCENT MAN 32 % (41-73); TOTAL CELLS COUNTED 100
--- NOTE | 2022-12-15 05:57 | NUR ---
SHIFT SUMMARY A/OX4, SBA TO BATHROOM. SPO2 >92% ON RA. TELE SR 70-80S, DENIES CHEST PAIN/PRESSURE. IV FLUIDS AND HEPARIN GTT INFUSING PER EMAR. VSS, NO ACUTE CHANGES AT THIS TIME. BED IN LOWEST POSITION WITH CALL LIGHT IN REACH. WILL CONTINUE TO MONITOR AND REPORT TO ONCOMING RN.
[2022-12-15 07:05] VITALS: BP 158/77
--- NOTE | 2022-12-15 11:14 | NUR ---
CALLED DR. SWANSON ABOUT BLOOD SUGAR DR. YOUNG ANSWERED FOR DR. SWANSON AND WAS NOTIFED OF THE PT'S CBG OF 356. HE WANTS AN ADDITIONAL DOSE OF 10 UNIT OF SHORT ACTING WITH HIS LUNCH. THE TOTAL INSULIN GIVEN WITH LUNCH WILL BE 20 UNITS. I VERIFIED THAT WITH DR. YOUNG.
[2022-12-15 11:57] VITALS: BP 144/67
[2022-12-15] MEDS ORDERED: VENL150ER PO (13:49)
[2022-12-15] MEDS ORDERED: LIRAGLUTIDE (13:54)
--- NOTE | 2022-12-15 14:52 | NUR ---
MORNING SUMMARY/D/C SUMMARY PT IS A&OX4, AND CALL LIGHT IS IN REACH. PT IS IND IN THE ROOM. HE STATES HE IS FEELING VERY GOOD AND DENIES ANY ANGINA, SOB, N/T, AND PAIN. NO ACUTE EVENTS. V/S STABLE. PT EDUCATED/ASSESSED ON FIRE IGNITION RISK AND SAFETY. PT D/C'D, IV PULLED, MEDICATIONS SENT TO THE PHARMACY, QUESTIONS ANSWERED, AND BELONGINGS WITH THE PT.
== END 2022-12-15 14:38 | disposition home or self-care (01) ==
LOC: ER 18:19 → PCU 18:20
PROVIDERS: Student in an Organized Health Care Education/Training Program; ADMIT Internal Medicine
DX: I48.91 Unspecified atrial fibrillation (principal); K21.9 Gastro-esophageal reflux disease without esophagitis; E11.65 Type 2 diabetes mellitus with hyperglycemia; E11.40 Type 2 diabetes mellitus with diabetic neuropathy, unspecified; I50.32 Chronic diastolic (congestive) heart failure; Z88.2 Allergy status to sulfonamides; Z88.8 Allergy status to other drugs, medicaments and biological substances; Z79.01 Long term (current) use of anticoagulants; Z79.4 Long term (current) use of insulin; Z79.899 Other long term (current) drug therapy
CPT/HCPCS: 36415; 71045; 80053; 82947; 83735; 83880; 84484; 85025; 85520; 85610; 85730; 93005; 93010; 96361; 96374; 99285-25; A9270; J1644; J1815; J7030

== ENCOUNTER 2022-12-17 10:08 | Inpatient (IN) | payer OTHER ==
[~2022-12-17] VITALS: Ht 185.4 cm; Wt 121.9 kg
[2022-12-17] VITALS (15 sets, daily range): BP systolic 92–158; BP diastolic 56–94
[~2022-12-17 10:08] MED LIST changes: +FAMO20; +LIRAGLUTIDE; +VENL150ER PO; +VENLAFAXINE 75 MG
[2022-12-17 10:47] LABS: Hematocrit 49.4 % (37.0-53.0); Hemoglobin 16.2 g/dL (13.5-17.5); Mean Corpuscular HGB 27.1 pg (26.0-34.0); Mean Corpuscular HGB Conc 32.8 g/dL (31.5-36.5); Mean Corpuscular Volume 83 fL (80-100); Mean Platelet Volume 11.7 fL (9.1-12.4); Platelet Count 309 K/mm3 (150-400); RDW Coefficient Variation 14.4 % (11.7-14.2); RDW Standard Deviation 43.4 fL (35.1-46.3); Red Blood Cell Count 5.98 M/mm3 (4.30-5.90); White Blood Cell Count 30.61 K/mm3 (4.00-11.30)
[2022-12-17 11:00] LABS: Bilirubin, Total 0.7 mg/dL (0.1-1.0); Bun/Creatinine Ratio 19.6 (12.0-20.0); Calcium, Blood 10.2 mg/dL (8.5-10.1); Creatinine, Blood 0.97 mg/dL (0.60-1.20); Globulin, Blood 4.2 g/dL (2.2-4.0); Magnesium, Blood 1.9 mg/dL (1.6-2.4); Potassium, Blood 4.1 mmol/L (3.5-5.5); Total Protein, Blood 8.2 g/dL (6.4-8.2)
[2022-12-17 11:54] LABS: BAND PERCENT MAN 2 % (0-8); BASOPHILS PERCENT MAN 0 % (0-2); EOSINOPHILS PERCENT MAN 0 % (0-6); LYMPHOCYTES % ATYPICAL MANUAL 2 % (0-0); LYMPHOCYTES PERCENT MAN 32 % (21-46); METAMYELOCYTE PERCENT MAN 1 % (0-0); MONOCYTES ABSOLUTE MAN 2.14 K/mm3 (0.16-1.47); MONOCYTES PERCENT MAN 7 % (4-13); NEUTROPHILS ABSOLUTE MAN 17.75 K/mm3 (1.96-9.15); SEG NEUTROPHILS PERCENT MAN 56 % (41-73); TOTAL CELLS COUNTED 100
--- NOTE | 2022-12-17 15:17 | NUR ---
PROVIDER PHONE CALL: Dr Morgan updated on pt status. RN instructed to stop cardizem drip and give metoprolol push.
[2022-12-17] MEDS ORDERED: TRULICITY4.5 MG/0.5 SC (15:32)
--- NOTE | 2022-12-17 16:25 | NUR ---
PROVIDER PHONE CALL: Dr Morgan notified of pt's blood sugar and HR. RN instructed to give 10 units regular insulin
--- NOTE | 2022-12-17 16:30 | NUR ---
PROVIDER UPDATE; Pt complaining of chest pressure. Dr Morgan called; no answer, message left.
--- NOTE | 2022-12-17 18:23 | NUR ---
SHIFT SUMMARY: Pt admitted from ED this afternoon. Blood sugars have been elevated requiring several doses of insulin. Heart rate continues to be elevated in 120-130s after cardizem drip, metoprolol IV, and digoxin IV push. Pt no longer complains of chest pain, but report acid reflux and has been burping quite a bit. He declines second dose of zofran from this RN as it was not effective. Pt mobilizes independently and uses call light appropriately.
[2022-12-17 19:20] LABS: Free Thyroxine 1.88 ng/dL (0.70-1.60)
[2022-12-17 19:21] LABS: Triiodothyronine, Free 3.18 pg/mL (2.18-3.98)
--- NOTE | 2022-12-17 21:34 | NUR ---
ASSUMPTION OF CARE NOTE THIS RN ASSUMED CARE OF PT AT 1900, REPORT FROM KATHY BELLO. PT LYING DOWN, ASLEEP IN ROOM. VSS, ALTHOUGH SBP A LITTLE SOFT AT 101. HR 100'S-120. PT PT ON 2 L VIA NC, D/T O2 DESAT DURING SLEEP. HOME CPAP AT BEDSIDE, RT TO COME IN AND SET UP WHEN AVAILABLE. PT DENIES CURRENT CP OR PRESSURE. DENIES SOB OR DIFFICULTY BREATHING AT THIS TIME. PT REPORTS NAUSEA W/OUT EMESIS. ZOFRAN ADMINISTERED PER EMAR. PT REPORTS MILD DIZZINESS WHEN UP AND AMBULATING. PT DRINKING A LOT OF WATER AND TOLERATING WELL. DENIES ISSUES WITH VOIDING OR BM. DENIES HAVING BM TODAY. CBG 420; RESIDENT NOTIFIED. NO NEW ORDERS. INSULIN ADMINSTERED PER EMAR. NS INFUSING PER EMAR. BEDBATH COMPLETED AND FRESH CLOTHES GIVEN, ALTHOUGH PT DECLINES HOSPITAL GOWN, PANTS PROVIDED. OREAL CARE COMPLETED INDEPENDENTLY. PT DENIES OTHER NEEDS OR CONCERNS AT THIS TIME. CALL LIGHT IN REACH
[2022-12-18] VITALS (7 sets, daily range): BP systolic 100–139; BP diastolic 68–84
[2022-12-18 02:17] LABS: Hematocrit 38.3 % (37.0-53.0); Hemoglobin 12.7 g/dL (13.5-17.5); Mean Corpuscular HGB 27.1 pg (26.0-34.0); Mean Corpuscular HGB Conc 33.2 g/dL (31.5-36.5); Mean Corpuscular Volume 82 fL (80-100); Mean Platelet Volume 10.9 fL (9.1-12.4); Platelet Count 227 K/mm3 (150-400); RDW Coefficient Variation 14.6 % (11.7-14.2); RDW Standard Deviation 43.4 fL (35.1-46.3); Red Blood Cell Count 4.68 M/mm3 (4.30-5.90); White Blood Cell Count 21.53 K/mm3 (4.00-11.30)
[2022-12-18 02:33] LABS: Bun/Creatinine Ratio 20.9 (12.0-20.0); Calcium, Blood 8.6 mg/dL (8.5-10.1); Creatinine, Blood 0.96 mg/dL (0.60-1.20); Potassium, Blood 4.3 mmol/L (3.5-5.5)
--- NOTE | 2022-12-18 06:25 | NUR ---
SHIFT SUMMARY PT REMAINS A&O X4. PT ANSWERING QUESTIONS BUT ANSWERS ARE SHORT AND PT SEEMS WITHDRAWN AND TIRED. VSS THROUGHOUT SHIFT, ALTHOUGH HEART RHYTHM REMAINS AFIB W/HR IN 100'S-120'S. HR INCREASES WITH MOVEMENT OR ACTIVITY INTO 120-130'S. PT DENIES SX. PT DENIES CP OR PRESSURE THIS SHIFT. DENIES SOB. PT ON HOME CPAP THROUGHOUT THE NIGHT. PT SLEPT MOST OF SHIFT. PT REPORTS NAUSEA X1 THIS SHIFT, MEDICATION PER EMAR W/RELIEF. PT INTAKING GOOD AMOUNT OF WATER. PT VOID X2 THIS SHIFT. NO BM. PT DENIES ANY NEEDS OR CONCERNS. NO ACUTE CHANGES W/PT. AT BEGINNING OF SHIFT CBG 420, INSULIN PER EMAR. AM LABS SHOWED CBG 307. CALL LIGHT IN REACH. WILL UPDATE ONCOMING KATHY
--- NOTE | 2022-12-18 17:13 | NUR ---
Shift Summary Pt appears to be sleeping for majoirty of shift, up to side of bed for urination. Pt on home cpap t/o shift. Tele showing afib averaging 120's, trending down to 100's, bp soft, will monitor. Spo2 >90% on cpap. Other vss. No other acute changes noted. Will continue to monitor.
--- NOTE | 2022-12-18 18:45 | NUR ---
Pt educated on ignition sources and risk of injury while wearing oxygen, pt denies having ignition sources at this time. Pt verbalize understanding.
--- NOTE | 2022-12-18 21:12 | NUR ---
ASSUMPTION OF CARE THIS RN ASSUMED CARE OF PT AT 1900. REPORT FROM KATHY PORTER. PT A&O X4, ALTHOUGH REPORTS BEING "TIRED AND WEAK, HAVING NO ENERGY". PT STATES HE SLEPT ALL DAY. PT DID NOT EAT MUCH, THIS RN ENCOURAGED PT TO TRY AND EAT TONIGHT AND WE WILL TRY TO ADVANCE DIET TOLERATED. PT AGREES. THIS RN PROVIDED EDUCATION. ALSO ENCOURAGED PT TO INCREASE ACTIVITY TOLERATED. VSS. PT DENIES CP OR PRESSURE AT THIS TIME. DENIES SOB. DENIES N/V AT THIS TIME. PT HAS CPAP ON AND "WANTS TO SLEEP". CBG 232. PT DENIES ANY CONCERNS OR ISSUES VOIDING, DENIES BM. PT ENCOURAGED TO TAKE IN PO FLUIDS. PT DOES REPORT IMPROVEMENT IN "DRY MOUTH AND FEELING DEHYDRATED". PT DENIES ANY NEEDS AT THIS TIME. CALL LIGHT IN REACH
[2022-12-19] VITALS (7 sets, daily range): BP systolic 99–123; BP diastolic 61–85
--- NOTE | 2022-12-19 06:07 | NUR ---
SHIFT SUMMARY PT REMAINS A&O X4. PT SLEPT MOST OF THE SHIFT. VSS; ALTHOUGH HR STILL SUSTAINING 100'S - 120'S. INCREASING TO 130'S WITH MOVEMENT OR ACTIVITY. PT REPORTS DIZZINESS WHEN HR INCREASES OTHERWISE DENIES OTHER SYMPTOMS. PT HAVING DIFFICULTY VOIDING, THIS RN ENCOURAGED PT TO GET UP AND ATTEMPT. PT UNABLE TO, BLADDER SCAN COMPLETED SHOWING 640 MLS. RIGHT AFTER PT WAS ABLE TO VOID 250 MLS. SINCE HAS ATTEMPTED TO VOID WITH MINIMAL OUTPUT. PT REPORTS HX OF BPH, NOT ON MEDICATION ANYMORE "FOR YEARS". PT ENCOURAGED PO INTAKE. WILL UPDATE ONCOMING RN. OTHERWISE PT RESTED AND NO ACUTE CHANGES. CALL LIGHT IN REACH.
--- NOTE | 2022-12-19 16:44 | NUR ---
SHIFT SUMMARY: PT ALERT AND ORIENTED X4, ABLE TO FOLLOW COMMANDS AND MAKE NEEDS KNOWN. BP STABLE, AFEBRILE, SATS >98% ON ROOM AIR, RESPIRATIONS EVEN AND UNLABORED. HR REMAINS AFIB 110-120'S, NEW ORDERS RECEIVED FOR RATE CONTROL, SEE EMAR. DENIES CP/PRESSURE. PT UNABLE TO VOID AT START OF SHIFT, BLADDER SCAN >600. EVENTUALLY ABLE TO VOID 350ML OF BRIANNA URINE. NO BM. PT COMPLAINING OF THROAT PAIN FROM EMESIS EPISODE PRIOR TO ADMISSION, MEDCIATED PER EMAR. BED IN LOW, CALL LIGHT IN REACH, WILL REPORT TO ONCOMING RN. IGNITION RISK: PATIENT EDUCATED ON RISK REGARDING IGNITION SOURCES AND RISK OF INJURY WHILE OXYGEN IS IN USE. PT DENIES SMOKING AND VERBALIZES UNDERSTANDING.
[2022-12-20] VITALS (7 sets, daily range): BP systolic 109–127; BP diastolic 72–98
--- NOTE | 2022-12-20 05:49 | NUR ---
SHIFT SUMMARY PATIENT ALERT AND ORIENTED X4. HAD NO COMPLAINTS OF PAIN OR SHORTNESS OF BREATH. PATIENT ON ROOM AIR, SPO2 96% ON ROOM AIR, HOME CPAP AT NIGHT. VITAL SIGNS STABLE, AFIB LOW 100'S-110'S ON TELE. NO ACUTE ISSUES NOTED OVERNIGHT. PATIENT ASSESSED FOR IGNITION RISK AND EDUCATED ON FIRE SAFETY IN THE HOSPITAL. WILL CONTINUE TO MONITOR. CALL LIGHT WITHIN REACH.
--- NOTE | 2022-12-20 07:49 | NUR ---
Pt wearing CPAP with 1 l/min bleed in. Awakened at time of bedside report when telemetry patches were replaced, as they had presumably come off while he was sleeping. Atrial fibrillation at 100-119 bpm noted by bedside monitoring engineer. Pt denies any discomfort/pain. Vital signs taken, noted blood pressure is stable.
--- NOTE | 2022-12-20 09:01 | NUR ---
Pt is awake, took his scheduled medications. States he does not want the clear liquid diet; requesting a more normal food tray. Order to advance diet as tolerated; ADA diet ordered for him. Pt states that he had a BM day before yesterday.
--- NOTE | 2022-12-20 09:19 | NUR ---
Pt was educated re: sources of ignition and dangers associated with them in hospital where oxygen is in use. Pt was educated that any sources of ignition are prohibited on the hospital campus at all times, and that any which are brought in by the patient or any visitors must be removed immediately. Pt verbalized compliance and understanding.
--- NOTE | 2022-12-20 09:35 | NUR ---
Pt instructed to let the staff know when he is up and moving around the room, to the bathroom, to chair, etc. so that telemetry can be monitored. Explained that this will be helpful for the doctor to know if his medications are controlling the heart rate appropriately in planning for discharge. Pt states that he is eager to go home. Verbalized assent.
--- NOTE | 2022-12-20 11:46 | NUR ---
Pt has been lying in bed, wearing his CPAP all morning, except for briefly when he was eating breakfast. Awakened for noon vital signs. Reqested that he get up and walk around so that evalutation of his heart rate to activity could be done. He verbalized assent, but continues to lie in bed and appears to be attempting to go back to sleep.
--- NOTE | 2022-12-20 12:03 | NUR ---
Pt is up in chair to eat lunch at PCT's insistence. Telemetry noted atrial fibrillation, rate 120s briefly when he got up, and settled down to 89-115 while sitting up in the chair.
--- NOTE | 2022-12-20 14:19 | NUR ---
Pt up to bathroom in room; heart rate 105-126 bpm during the activity. Remains in atrial fibrillation.
--- NOTE | 2022-12-20 17:13 | NUR ---
Pt was more awake and talkative this afternoon around 3:30 pm. He was asking about discharge. Informed staff that he had a BM earlier, and did not have any dizzyness/lightheadedness/chest pain when he stood up and walked. Did report a short period of dizzyness once he sat on the toilet, but said that it was only brief. Heart rate noted in the 90s range at rest while talking. He is asking if he might go home in the morning.
--- NOTE | 2022-12-20 17:35 | NUR ---
Pt asked for Tylenol for GERD discomfort. States it was exacerbated by all the vomiting he had before admission.
[2022-12-21 04:47] VITALS: BP 118/77
--- NOTE | 2022-12-21 06:07 | NUR ---
SHIFT SUMMARY PATIENT ALERT AND ORINETED X4. INDEPENDENT IN HIS ROOM. PATIENT HAD NO COMPLAINTS OF CHEST PAIN, LIGHT HEADEDNESS, OR SHORTNESS OF BREATH. PATIENT'S SPO2 90'S ON ROOM AIR WHILE AWAKE, WEARS CPAP AT NIGHT. VITAL SIGNS STABLE, PATIENT IN AFIB IN THE LOW 100'S TO 110'S, OCCASIONALLY HEART RATE INCREASES TO THE 120'S WITH EXERCISE. NO ACUTE ISSUES NOTED OVERNIGHT. PATIENT ASSESSED FOR IGNITION RISK AND EDUCATED ON FIRE SAFETY IN THE HOSPITAL. WILL CONTINUE TO MONITOR. CALL LIGHT WITHIN REACH.
[2022-12-21 08:09] VITALS: BP 105/73
--- NOTE | 2022-12-21 09:46 | NUR ---
IGNITION RISK ASSESSMENT PT ASSESSED FOR SMOKING OR ANY IGNITION RISK DEVICES, NONE REPORTED. PT REMINDED THAT [facility] IS A SMOKE FREE FACILITY AND ASKED PT TO REMIND ANY VISITORS TO LEAVE IGNITION RISK DEVICES IN THEIR VEHICLE. PT AGREED.
[2022-12-21 11:17] VITALS: BP 133/91
[2022-12-21 11:33] LABS: Hematocrit 40.3 % (37.0-53.0); Hemoglobin 13.5 g/dL (13.5-17.5)
[2022-12-21 11:38] LABS: Bun/Creatinine Ratio 20.6 (12.0-20.0); Calcium, Blood 8.7 mg/dL (8.5-10.1); Creatinine, Blood 0.68 mg/dL (0.60-1.20); Magnesium, Blood 2.1 mg/dL (1.6-2.4)
--- NOTE | 2022-12-21 13:35 | NUR ---
DISCHARGE UPDATE DISCHARGE PACKET GONE OVER WITH PT AND PT AT 1313. PT DISCHARGED AT 1330 VIA WHEELCHAIR AND ON RA. PT ABLE TO TRANSFER TO AND FROM WHEELCHAIR ON HIS OWN, TOLERATED WELL. PT PERSONAL BELONGINGS IN BAGS AND WITH PT DURING DISCHARGE. DISCHARGE PACKET WITH PT AT TIME OF DISCHARGE.
--- NOTE | 2022-12-21 13:54 | NUR ---
ASSUMED CARE AT 1300 PATIENT ALERT, ORIENTED, PLEASANT. RESTING IN BED. HR ON TELE AFIB 100-115. 97% ON ROOM AIR. EMPTIED URINAL AND REMOVED TRAY FROM ROOM. CALL LIGHT WITHIN REACH.
[2022-12-21 16:39] VITALS: BP 108/73
--- NOTE | 2022-12-21 18:54 | NUR ---
End of shift Patient alert, oriented, and pleasant through afternoon. Rested in his bed and played games on his phone. HR at rest slowly trended down to 80-90s. Reported severe esophageal pain with bites of dinner. States that it has been a long-term issue that he has learned to manage at home but has only recently gotten worse. Independent in room. Other VS stable. Voiding well. Plan for outpatient follow up of epigastric pain.
[2022-12-21 20:37] VITALS: BP 121/84
[2022-12-22 00:23] VITALS: BP 130/90
--- NOTE | 2022-12-22 04:25 | NUR ---
SHIFT SUMMARY A/OX4, SBA TO BATHROOM. SPO2 >92% ON RA. TELE AFIB 80-110, DENIES CHEST PAIN/PRESSURE. HOME CPAP AT BEDSIDE, SLEPT T/O THE NIGHT. VSS, NO ACUTE CHANGES AT THIS TIME. BED IN LOWEST POSITION WITH CALL LIGHT IN REACH. WILL CONTINUE TO MONITOR AND REPORT TO ONCOMING RN. FIRE AND IGNITION RISK ASSESSED, NONE NOTED, PT EDUCATED ON FIRE SAFETY.
[2022-12-22 05:15] VITALS: BP 122/80
[2022-12-22 07:38] VITALS: BP 114/88
[2022-12-22 11:58] VITALS: BP 112/85
[2022-12-22 16:38] VITALS: BP 102/78
--- NOTE | 2022-12-22 18:53 | NUR ---
0800 FIRE RISK ASSESSMENT PT ASSESSED FOR FIRE IGNITION RISK DEVICES AND SMOKING, NONE REPORTED. PT REMINDED THAT [facility] IS A SMOKE FERE FACILITY AND THAT ANY VISITORS NEED TO LEAVE THEIR IGNITION RISK DEVICES I THEIR VEHICLE. PT AGREED.
--- NOTE | 2022-12-22 19:30 | NUR ---
SHIFT SUMMARY PT A/OX4 AND COOPERATIVE OF CARE. PT ABLE TO EXPRESS NEEDS AND CALLED APPOPIATELY. PT HR REMAINED A-FIB RANGING 80-100'S, MD ORDERED ONE-TIME EXTRA DOSE OF DILT. PT HR 70-90'S. OTHER VSS THROUGHOUT SHIFT WITH 02 SATS IN THE 90'S ON RA, PT WOULD PUT CPAP ON WHEN SLEEPING. NO REPORT OF CHEST PAIN/PRESSURE THROUGHOUT SHIFT, DOES REPORT "PAIN WHEN SWALLOWING" IN THE CHEST AREA. NO REPORT OF SOB/DYSPNEA THROUGHOUT SHIFT. PT INDEPENDENT IN ROOM.
[2022-12-22 20:00] VITALS: BP 97/67
--- NOTE | 2022-12-22 20:00 | NUR ---
ASSUMED CARE OF PT AT 1915. REPORT RECEIVED IN ROOM. PT AT THIS TIME IN SHOWER. INDEPENEDENT IN ADL'S. WILL REVIEW CHART AND PLAN OF CARE FOR THIS PT.
[2022-12-23] VITALS: BP 98/69
[2022-12-23 05:11] VITALS: BP 106/84
--- NOTE | 2022-12-23 05:56 | NUR ---
SHIFT SUMMARY/ASSUMPTION OF CARE A/OX4, SBA TO BATHROOM. SPO2 >92% ON RA. TELE AFIB 80-90S, DENIES CHEST PAIN/PRESSURE. HOME CPAP AT BEDSIDE, SLEPT T/O THE NIGHT. VSS, NO ACUTE CHANGES AT THIS TIME. BED IN LOWEST POSITION WITH CALL LIGHT IN REACH. WILL CONTINUE TO MONITOR AND REPORT TO ONCOMING RN. FIRE AND IGNITION RISK ASSESSED, NONE NOTED, PT EDUCATED ON FIRE SAFETY.
[2022-12-23 08:20] VITALS: BP 117/80
--- NOTE | 2022-12-23 11:03 | NUR ---
FIRE IGNITION RISK PT ASSESSED FOR SMOKING AND FIRE IGNITION RISK DEVICES, NONE REPORTED. PT REMINDED THAT [facility] IS A SMOKE FREE FACILITY AND THAT IF ANY VISITORS NEED TO LEAVE FIRE IGNITION RISK DEVICES IN THEIR VEHICLES. PT AGREED.
[2022-12-23 12:14] VITALS: BP 129/87
[2022-12-23] MEDS ORDERED: DILTIAZEM 24HR360 MG PO (12:25)
[2022-12-23] MEDS ORDERED: PANT40 PO (12:25)
--- NOTE | 2022-12-23 14:08 | NUR ---
DISCHARGE UPDATE DISCHARGE P[ACKET GONE OVER WITH PT AT 1345. PT DISCHARGED AT 1400, VIA WHEELCHAIR AND ON RA. PT ABLE TO TRANSFER TO AND FROM WHEELCHAIR ON HIS OWN, TOLERATED WELL. PT BAGGED UP HIS BELONGINGS AND DISCHARGE PACKET AND HAD THEM WITH HIM DURING DISCHARGE. PT PERSONAL CPAP WITH PT AT TIME OF DISCHARGE.
== END 2022-12-23 14:22 | disposition home or self-care (01) | DRG 309 ==
LOC: ER 10:08 → PCU 12:14
PROVIDERS: Emergency Medicine; Internal Medicine; ADMIT Internal Medicine
PROC: 5A09357 Assistance with Respiratory Ventilation, Less than 24 Consecutive Hours, Continuous Positive Airway Pressure (ICD-10-PCS; principal; 2022-12-20)
DX: I48.20 Chronic atrial fibrillation, unspecified (principal); C91.10 Chronic lymphocytic leukemia of B-cell type not having achieved remission; I50.32 Chronic diastolic (congestive) heart failure; K21.9 Gastro-esophageal reflux disease without esophagitis; G47.33 Obstructive sleep apnea (adult) (pediatric); E03.9 Hypothyroidism, unspecified; E11.65 Type 2 diabetes mellitus with hyperglycemia; E11.40 Type 2 diabetes mellitus with diabetic neuropathy, unspecified; E86.0 Dehydration; F32.A Depression, unspecified; I11.0 Hypertensive heart disease with heart failure; I27.20 Pulmonary hypertension, unspecified; I07.1 Rheumatic tricuspid insufficiency; G31.84 Mild cognitive impairment of uncertain or unknown etiology; Z79.01 Long term (current) use of anticoagulants; Z88.2 Allergy status to sulfonamides; Z88.8 Allergy status to other drugs, medicaments and biological substances; Z79.899 Other long term (current) drug therapy; Z79.890 Hormone replacement therapy; Z79.4 Long term (current) use of insulin; Z90.89 Acquired absence of other organs; Z98.890 Other specified postprocedural states; Z99.89 Dependence on other enabling machines and devices; Z79.51 Long term (current) use of inhaled steroids; Z79.84 Long term (current) use of oral hypoglycemic drugs
CPT/HCPCS: 36415; 71045; 80048; 80053; 82947; 83690; 83735; 84439; 84443; 84481; 84484; 85014; 85018; 85025; 85027; 93005; 93010; 94660; 94762; 96361; 96365; 96375; 96376; 97116; 97161; 97530; 99285-25; A9270; C9113; G0378; J1160; J1815; J2405; J7030

== ENCOUNTER 2023-05-21 00:12 | Inpatient (IN) | payer OTHER ==
[~2023-05-21] VITALS: Ht 185.4 cm; Wt 122.0 kg
[~2023-05-21 00:12] MED LIST changes: +DILTIAZEM 24HR360 MG PO; +PANT40 PO; +TRULICITY4.5 MG/0.5 SC
[2023-05-21] MEDS ORDERED: FAMO20 PO (00:26)
[2023-05-21] MEDS ORDERED: LIPITOR80 MG PO (00:26)
[2023-05-21] MEDS ORDERED: SPIRONOLACTONE25 MG PO (00:27)
[2023-05-21 00:45] LABS: Hematocrit 36.1 % (37.0-53.0); Hemoglobin 10.4 g/dL (13.5-17.5); Mean Corpuscular HGB 22.1 pg (26.0-34.0); Mean Corpuscular HGB Conc 28.8 g/dL (31.5-36.5); Mean Corpuscular Volume 77 fL (80-100); Mean Platelet Volume 11.5 fL (9.1-12.4); Platelet Count 250 K/mm3 (150-400); RDW Coefficient Variation 15.9 % (11.7-14.2); White Blood Cell Count 18.83 K/mm3 (4.00-11.30)
[2023-05-21 00:51] LABS: Base Excess Venous -6.6 mmol/L; Bicarbonate Venous 19.2 mmol/L (24.0-30.0); PCO2 Venous 36.4 mmHg (38-42); pH Blood Venous 7.33 (7.34-7.37)
[2023-05-21 00:57] LABS: Albumin, Blood 3.4 g/dL (3.4-5.0); Albumin/Globulin Ratio 0.9 (0.8-1.8); Bilirubin, Total 0.7 mg/dL (0.1-1.0); Bun/Creatinine Ratio 17.5 (12.0-20.0); Calcium, Blood 8.2 mg/dL (8.5-10.1); Creatinine, Blood 0.86 mg/dL (0.60-1.20); Globulin, Blood 3.9 g/dL (2.2-4.0); Potassium, Blood 4.2 mmol/L (3.5-5.5); Total Protein, Blood 7.3 g/dL (6.4-8.2)
[2023-05-21 01:35] LABS: BAND PERCENT MAN 2 % (0-8); BASOPHILS PERCENT MAN 0 % (0-2); EOSINOPHILS ABSOLUTE MAN 0.18 K/mm3 (0.00-0.68); EOSINOPHILS PERCENT MAN 1 % (0-6); LYMPHOCYTES % ATYPICAL MANUAL 3 % (0-0); LYMPHOCYTES ABSOLUTE MAN 9.79 K/mm3 (0.84-5.20); LYMPHOCYTES PERCENT MAN 49 % (21-46); MONOCYTES ABSOLUTE MAN 0.75 K/mm3 (0.16-1.47); MONOCYTES PERCENT MAN 4 % (4-13); NEUTROPHILS ABSOLUTE MAN 8.09 K/mm3 (1.96-9.15); SEG NEUTROPHILS PERCENT MAN 41 % (41-73); TOTAL CELLS COUNTED 100
[2023-05-21 02:56] LABS: Influenza A, PCR NEGATIVE (NEGATIVE); Influenza B, PCR NEGATIVE (NEGATIVE); Resp Syncytial Virus, PCR NEGATIVE (NEGATIVE); SARS-Cov-2 (COVID-19) PCR, MMC NEGATIVE (NEGATIVE)
[2023-05-21 04:21] VITALS: BP 123/90
[2023-05-21] MEDS ORDERED: ATOM40 PO (04:31)
[2023-05-21 06:20] VITALS: BP 123/97
[2023-05-21 06:39] VITALS: BP 136/91
--- NOTE | 2023-05-21 07:18 | NUR ---
0418: ASSUMED CARE OF PT, REPORT RECEIVED ED KATHY RAMIREZ AT 0400. PT ARRIVED TO UNIT AND WAS ASSISTED INTO BED. OXYGEN VIA NC AT 3LPM. VSS. PT HAS SOB WITH MINIMAL EXERTION, STABLE AT REST.TELEMETRY PLACED PER ORDERS. SEE EMR FOR COMPLETE ROS. 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 BLOOD GLUCOSE MONITOR TO LEFT UPPER ARM. PIV TO RAC AND LEFT WRIST, BOTH ARE PATENT WITHOUT S/S OF INFECTION OR INFILTRATION. PT HAS BROUGHT HOME CPAP. CALL TO PROVIDER FOR ORDERS, ORDERS RECEIVED FOR RESPIRATORY, DM, AND DIET. PT IS RESTING COMFORTABLY IN BED WITH STABLE VS. EDUCATION PROVIDED ON FALL SAFETY, MEDICATIONS, ORIENTATION TO THE ROOM, AND CURRENT TREATMENT. BED IN THE LOWEST POSITION WITH CALL LIGHT WITHIN REACH. NEEDS MET.
[2023-05-21 07:45] VITALS: BP 138/85
[2023-05-21 10:33] LABS: Hematocrit 34.3 % (37.0-53.0); Hemoglobin 10.1 g/dL (13.5-17.5); Mean Corpuscular HGB 22.1 pg (26.0-34.0); Mean Corpuscular HGB Conc 29.4 g/dL (31.5-36.5); Mean Corpuscular Volume 75 fL (80-100); Mean Platelet Volume 11.1 fL (9.1-12.4); Platelet Count 246 K/mm3 (150-400); RDW Coefficient Variation 16.1 % (11.7-14.2); RDW Standard Deviation 43.4 fL (35.1-46.3); Red Blood Cell Count 4.56 M/mm3 (4.30-5.90); White Blood Cell Count 20.73 K/mm3 (4.00-11.30)
[2023-05-21 10:52] LABS: Albumin, Blood 3.3 g/dL (3.4-5.0); Albumin/Globulin Ratio 0.9 (0.8-1.8); Bilirubin, Total 0.8 mg/dL (0.1-1.0); Bun/Creatinine Ratio 15.9 (12.0-20.0); Calcium, Blood 8.6 mg/dL (8.5-10.1); Creatinine, Blood 0.95 mg/dL (0.60-1.20); Globulin, Blood 3.6 g/dL (2.2-4.0); Potassium, Blood 3.8 mmol/L (3.5-5.5); Total Protein, Blood 6.9 g/dL (6.4-8.2)
[2023-05-21 12:03] LABS: BASOPHILS PERCENT MAN 0 % (0-2); EOSINOPHILS PERCENT MAN 1 % (0-6); LYMPHOCYTES ABSOLUTE MAN 12.02 K/mm3 (0.84-5.20); LYMPHOCYTES PERCENT MAN 58 % (21-46); MONOCYTES ABSOLUTE MAN 0.41 K/mm3 (0.16-1.47); MONOCYTES PERCENT MAN 2 % (4-13); NEUTROPHILS ABSOLUTE MAN 8.08 K/mm3 (1.96-9.15); SEG NEUTROPHILS PERCENT MAN 39 % (41-73); TOTAL CELLS COUNTED 100
[2023-05-21 15:56] VITALS: BP 130/78
--- NOTE | 2023-05-21 16:45 | NUR ---
SHIFT SUMMARY PATIENT USING HOME CPAP WITH O2 BLEED AT 6 LITERS, USING NASAL CANNULA WHILE AWAKE BETWEEN 4 AND 6 LITERS. LUNGS BILAT INTERMITTENTLY HAVE FINE MILD CRACKLES IN BASES, OTHER TIMES TOTALLY CLEAR. WORK OF BREATHING IS UNLABORED, ABLE TO CONVERSATE WITHOUT SOB OR DESAT. URINATING ADEQUATELY. VSS. C/O NEUROPATHIC PAIN IN BILATERAL FEET, GIVEN APAP WITH GOOD RESULTS, THIS IS HIS HOME REMEDY. WILL CONTINUE TO MONITOR
[2023-05-21 19:34] VITALS: BP 124/74
--- NOTE | 2023-05-21 22:58 | NUR ---
REPORT RECEIVIED VERIFIED, A/O FLAT AFFECT, YET COOPERATIVE. NO C/O PAIN NO DISTRESS, 90% ON 5L NC, LAYING QUIETLY IN BED. CONT PULSE OX CHANGED ON FINGER BUT NO CHANGE IN %, WILL CONT TO MONITOR. HEART RATE STILL IN THE 100S BUT BETTER CONTROLLED THEN PREVIOUS EVENING.
[2023-05-22 03:19] VITALS: BP 108/67
[2023-05-22 05:34] LABS: Bun/Creatinine Ratio 16.9 (12.0-20.0); Calcium, Blood 8.6 mg/dL (8.5-10.1); Creatinine, Blood 0.95 mg/dL (0.60-1.20); Magnesium, Blood 1.9 mg/dL (1.6-2.4); Potassium, Blood 3.6 mmol/L (3.5-5.5)
[2023-05-22 07:55] VITALS: BP 126/82
[2023-05-22 14:38] VITALS: BP 108/70
--- NOTE | 2023-05-22 19:27 | NUR ---
SHIFT SUMMARY PATIENT INDEPENDENT IN THE ROOM. PATIENT ABLE TO MAKE NEEDS KNOWN. PATIENT STATES SON DOES THE COOKING AT HOME BUT HE MANAGES HIS MEDICATIONS. LUNGS DECREASED THROUGHOUT. PATIENT'S HOME CPAP AVAILABLE FOR USE. PATIENT MEDICATED FOR NERVE PAIN IN FEET. PATIENT TO START LYRICA THIS EVENING. PATIENT NOTED TO BE DRINKING DIET SODA FROM HOME. PATIENT STATES HE DOES NOT DRINK THAT MUCH OF IT BUT WILL NOT DIRECTLY ANSWER HOW MUCH HE IS DRINKING. ATTEMPTING TO DIURESE PATIENT.
[2023-05-22 20:19] VITALS: BP 125/83
[2023-05-23 04:32] VITALS: BP 108/71
--- NOTE | 2023-05-23 05:19 | NUR ---
report received verified pt doing much better today o2 still in low 90s but heart rate is under control today. c/o pain to feet and legs today, ordered lyrica and then tylenol was given, since then pt has had no complaints. will cont to monitor
[2023-05-23 05:20] LABS: Bun/Creatinine Ratio 17.1 (12.0-20.0); Calcium, Blood 8.6 mg/dL (8.5-10.1)
[2023-05-23 08:16] VITALS: BP 121/74
[2023-05-23] MEDS ORDERED: AMITRIPTYLINE H25 MG PO (12:29)
[2023-05-23 14:56] VITALS: BP 104/58
--- NOTE | 2023-05-23 17:21 | NUR ---
SHIFT SUMMARY PT A&OX4 AND PLEASANT. PT MORE ALERT AND ENGAGED WITH STAFF DURING THE AFTERNOON. CONTINUING TO DIURES. PT C/O BILATERAL FOOT PAIN. APPLIED LIDOCANE OINTMENT PER EMAR WITH GOOD EFFECT. NO ACUTE CHANGES. VSS. BLOOD GLUCOSE IMPROVED FROM YESTERDAY. BED IN LOWEST POSITION AND CALL LIGHT IN REACH.
[2023-05-23 20:40] VITALS: BP 118/71
[2023-05-24 04:40] VITALS: BP 114/77
--- NOTE | 2023-05-24 06:12 | NUR ---
SHIFT SUMMARY PATIENT ALERT AND ORIENTED X4. HAD NO COMPLAINTS OF PAIN OR SHORTNESS OF BREATH. CONTINUES ON 5 LITERS O2 VIA NC, WORE HIS CPAP OVERNIGHT. VITAL SIGNS STABLE, AFIB ON TELE. NO ACUTE ISSUES NOTED OVERNIGHT. WILL CONTINUE TO MONITOR. CALL LIGHT WITHIN REACH.
[2023-05-24 08:16] VITALS: BP 114/79
[2023-05-24 14:23] VITALS: BP 100/65
--- NOTE | 2023-05-24 17:05 | NUR ---
SHIFT SUMMARY PT A&OX4 AND PLEASANT. NO ACUTE CHANGES. NO C/O PAIN. PT ON 5L OF OXYGEN AT START OF SHIFT. RT IN TO SEE PT AND GIVE BREATHING TX IN AFTERNOON. TITRATED PT DOWN TO 4L AND SATING IN THE HIGH 80'S TO LOW 90'S. VSS. BED IN LOWEST POSITION AND CALL LIGHT IN REACH.
[2023-05-24 20:28] VITALS: BP 119/68
--- NOTE | 2023-05-24 22:27 | NUR ---
2052 PT SITTING UP IN BED, REPORTS PAIN IN L FOOT, APPLIED LIDOCAINE OINTMENT, WILL EVAL FOR EFFECT. REPORTS SOB WITH EXERTION, ON 4L NC O2 AT 89%. BS WAS 188. NO OTHER APPARENT SIGNS OF DISTRESS. CALL LIGHT IS IN REACH.
--- NOTE | 2023-05-24 22:29 | NUR ---
PT SITTING UP IN BED USING PHONE. DENIES NEED FOR ANYTHING AT THIS TIME. NO APPARENT SIGNS OF DISTRESS. CALL LIGHT IS IN REACH.
--- NOTE | 2023-05-25 01:33 | NUR ---
0000 PT LYING IN BED, CPAP ON, SLEEP STUDY IN PROGRESS, NO APPARENT SIGNS OF DISTRESS. CALL LIGHT IS IN REACH. 0100 TELE AIR COMMODORE CALLED, TELE NOT COMING IN. CHANGED BATTERY IN TELE, PER TELE AIR COMMODORE TELE COMING IN GOOD NOW. PT'S O2 SAT IS AT 82%, CALLED RT PARTH, HE ADVISED TO DO 2L O2 BLEED IN TO CPAP, TURNED THE 2L ON WITH THE CPAP, O2 CAME UP TO 92%. DOCUMENTED BOTH READINGS ON SLEEP STUDY LOG. NO OTHER APPARENT SIGNS OF DISTRESS. PT DENIES NEED FOR ANYTHING ELSE AT THIS TIME. NO OTHE APPARENT SIGNS OF DISTRESS. CALL LIGHT IS IN REACH.
--- NOTE | 2023-05-25 01:36 | NUR ---
PT LYING IN BED, EYES CLOSED, APPEARS TO BE RESTING. BREATHING IS EVEN, UNLABORED. CPAP IS ON WITH 2L BLEED IN. NO APPARENT SIGNS OF DISTRESS. CALL LIGHT IS IN REACH.
--- NOTE | 2023-05-25 02:00 | NUR ---
RT INCREASED CPAP BLEED IN TO 12L, O2 WAS AT 82%, IT IS NOW AT 90%. NO OTHER APPARENT SIGNS OF DISTRESS. CALL LIGHT IS IN REACH.
[2023-05-25 04:37] VITALS: BP 122/75
--- NOTE | 2023-05-25 04:55 | NUR ---
0400 PT LYING IN BED, AWAKE, DENIES NEED FOR ANYTHING AT THIS TIME. NO APPARENT SIGNS OF DISTRESS. CALL LIGHT IS IN REACH.
--- NOTE | 2023-05-25 04:55 | NUR ---
PT IS AAO X 4, HAD SLEEP STUDY LAST NIGHT, IS CURRENTLY ON CPAP WITH 10L AT 90%. BS WAS 188, TELE AFIB WITH BBB AT 76. REPORTED L FOOT PAIN, GOT LIDOCAINE GEL TO L FOOT.
[2023-05-25 05:11] LABS: Albumin, Blood 3.2 g/dL (3.4-5.0); Anion Gap 6 mmol/L (6-16); Blood Urea Nitrogen 28 mg/dL (8-24); Bun/Creatinine Ratio 25.2 (12.0-20.0); CO2, Blood 27 mmol/L (21-32); Calcium, Blood 8.4 mg/dL (8.5-10.1); Chloride, Blood 106 mmol/L (98-108); Creatinine, Blood 1.11 mg/dL (0.60-1.20); Glomerular Filtration Rate 73 (60-); Glucose, Blood 208 mg/dL (70-99); Phosphorus, Blood 3.8 mg/dL (2.5-4.9); Potassium, Blood 3.7 mmol/L (3.5-5.5); Sodium, Blood 139 mmol/L (136-145)
--- NOTE | 2023-05-25 05:31 | NUR ---
PT LYING IN BED, EYES CLOSED, APPEARS TO BE RESTING. BREATHING IS EVEN, UNLABORED. NO APPARENT SIGNS OF DISTRESS. CALL LIGHT IS IN REACH. NO OTHER CHANGES THIS SHIFT.
[2023-05-25 07:14] VITALS: BP 133/85
[2023-05-25 08:41] LABS: Hematocrit 35.5 % (37.0-53.0); Hemoglobin 10.5 g/dL (13.5-17.5); Mean Corpuscular HGB 21.6 pg (26.0-34.0); Mean Corpuscular HGB Conc 29.6 g/dL (31.5-36.5); Mean Corpuscular Volume 73 fL (80-100); Mean Platelet Volume 11.4 fL (9.1-12.4); Platelet Count 236 K/mm3 (150-400); RDW Coefficient Variation 15.9 % (11.7-14.2); Red Blood Cell Count 4.86 M/mm3 (4.30-5.90); White Blood Cell Count 18.46 K/mm3 (4.00-11.30)
[2023-05-25 09:25] LABS: BAND PERCENT MAN 1 % (0-8); BASOPHILS PERCENT MAN 0 % (0-2); EOSINOPHILS ABSOLUTE MAN 0.18 K/mm3 (0.00-0.68); EOSINOPHILS PERCENT MAN 1 % (0-6); LYMPHOCYTES ABSOLUTE MAN 7.19 K/mm3 (0.84-5.20); LYMPHOCYTES PERCENT MAN 39 % (21-46); MONOCYTES ABSOLUTE MAN 0.73 K/mm3 (0.16-1.47); MONOCYTES PERCENT MAN 4 % (4-13); NEUTROPHILS ABSOLUTE MAN 10.33 K/mm3 (1.96-9.15); SEG NEUTROPHILS PERCENT MAN 55 % (41-73); TOTAL CELLS COUNTED 100
[2023-05-25 16:55] VITALS: BP 112/75
--- NOTE | 2023-05-25 18:16 | NUR ---
SHIFT SUMMARY: PT A/O X 4, STANDBY ASSIST, PLEASANT AND COOPERATIVE WITH CARE. PT TITRATED FROM 3 LPM TO 2 LPM VIA NC THIS AFTERNOON. PT SATS ARE 92-95%. PT HAS HAD NO COMPLAINTS EXCEPT NERVE PAIN TO L FOOT. BLOOD SUGARS MANAGED. CT STUDY COMPLETED TODAY. TOLERATED ROCEPHIN ABX.
[2023-05-25 20:13] VITALS: BP 98/69
--- NOTE | 2023-05-26 04:39 | NUR ---
END OF SHIFT SUMMARY PT SLEPT ON AND OFF THROUGHOUT THE SHIFT. PT TOLERATED CPAP MACHINE. PT A&O x4, VSS, ON 2.5L VIA NC OXYGEN SAT AT 93%. NO C/O CHEST PAIN, NO SOB. PT REQUESTED APAP FOR L FOOT PAIN AND LIDOCAINE OINTMENT APPLIED x2. PT ABLE TO MAKE NEEDS KNOWN, CALL LIGHT WITHIN REACH, WCTM.
[2023-05-26 07:43] VITALS: BP 105/60
[2023-05-26 16:36] VITALS: BP 110/67
--- NOTE | 2023-05-26 19:19 | NUR ---
SHIFT SUMMARY: PT A/OX4, IND IN ROOM. O2 TITRATED TO 1 LPM VIA NC. SATS 92-95%. BLOOD SUGARS MANAGED WITH CURRENT REGIMEN. NO COMPLAINTS OF PAIN TO FEET THIS SHIFT. HAD NO CONCERNS. COAT MAKER CAME AND CHANGED HOME CPAP SETTINGS AND PT TO USE HOME CPAP TONIGHT.
[2023-05-26 20:26] VITALS: BP 115/74
[2023-05-27 04:33] VITALS: BP 102/71
--- NOTE | 2023-05-27 05:37 | NUR ---
END OF SHIFT SUMMARY PT A&O x4, VSS, AFEBRILE. PT ON 1L VIA NC WITH OXYGEN SAT AT 92%. PT DENIED CHEST PAIN, NO SOB. RESP RATE EVEN AND UNLABORED, NO SIGNS OF RESP DISTRESS. PT TOLERATED THE CPAP THAT HIS FAMILY BROUGHT FROM HOME. NO C/O PAIN OR DISCOMFORT, NO REQUESTS FOR PAIN MEDICATION. PT SLEPT WELL OVERNIGHT. WILL CONTINUE TO TITRATE PT OFF OF OXYGEN. PT CALM AND COOPERATIVE WITH CARE PROVIDED, ABLE TO MAKE NEEDS KNOWN. CALL LIGHT WITHIN REACH, WCTM.
[2023-05-27 07:54] VITALS: BP 122/87
[2023-05-27 15:28] VITALS: BP 107/65
--- NOTE | 2023-05-27 18:12 | NUR ---
SHIFT SUMMARY: NO ACUTE EVENTS. NO EVENTS ON TELE, AFIB 80-90'S. BREATH SOUNDS CLEAR, ON O2 @ 3 L/MIN NC, CONT OXIMETRY SHOWS SATS 90-95% DEPENDING ON ACTIVITY, HOB, AND COUGHING. DENIED PAIN OTHER THAN "NORMAL" NEUROPATHY DISCOMFORT. INDPENEDENT IN ROOM, GETTING UP TO BR. HOME O2 EVAL COMPLETE. WILL LIKELY D/C TOMORROW MORNING.
[2023-05-27 19:45] VITALS: BP 102/73
[2023-05-28 04:36] VITALS: BP 126/75
--- NOTE | 2023-05-28 06:20 | NUR ---
END OF SHIFT PT SLEPT ON AND OFF THROUGHOUT THE SHIFT. PT A&O X4, VSS, AFEBRILE. PT TOLERATED HIS HOME CPAP MACHINE. PT REQUESTED ALBUTEROL INHALER LAST NIGHT, HE FELT CONGESTED. PT CALM AND COOPERATIVE WITH CARE PROVIDED, ABLE TO MAKE NEEDS KNOWN. NO C/O CHEST PAIN/PRESSURE/TIGHTNESS, NO C/O SOB. RT BUMPED UP HIS OXYGEN TO 4L WHILE USING CPAP. RESP RATE EVEN AND UNLABORED. PT DENIED NEUROPATHY PAIN/DISCOMFORT. CALL LIGHT WITHIN REACH, WCTM.
[2023-05-28 07:35] LABS: Hematocrit 36.4 % (37.0-53.0); Hemoglobin 10.7 g/dL (13.5-17.5); Mean Corpuscular HGB 21.8 pg (26.0-34.0); Mean Corpuscular HGB Conc 29.4 g/dL (31.5-36.5); Mean Corpuscular Volume 74 fL (80-100); Platelet Count 214 K/mm3 (150-400); RDW Coefficient Variation 15.9 % (11.7-14.2); RDW Standard Deviation 42.3 fL (35.1-46.3); Red Blood Cell Count 4.91 M/mm3 (4.30-5.90); White Blood Cell Count 19.01 K/mm3 (4.00-11.30)
[2023-05-28 07:44] VITALS: BP 114/75
[2023-05-28 08:09] LABS: Calcium, Blood 8.5 mg/dL (8.5-10.1); Creatinine, Blood 1.1 mg/dL (0.60-1.20); Potassium, Blood 4.2 mmol/L (3.5-5.5)
[2023-05-28] MEDS ORDERED: DOXY100 PO (11:41)
[2023-05-28] MEDS ORDERED: PREG50 PO (11:42)
[2023-05-28] MEDS ORDERED: VISBIOME 112.51 EACH PO (11:42)
[2023-05-28] MEDS ORDERED: FURO20 PO (11:43)
[2023-05-28] MEDS ORDERED: CEFU500T30 PO (11:43)
--- NOTE | 2023-05-28 12:24 | NUR ---
PATIENT DISCHARGED TO HOME, DRIVING HIMSELF. IV SALINE LOCK AND TELEMETRY REMOVED WITHOUT INCIDENT. VERBALIZED UNDERSTANDING OF D/C INSTRUCTIONS. HOME O2 TANK DELIVERED BY [facility] AND CONDUIT CLEANER WILL MEET HIM AT HIS HOME TO SET UP CONCENTRATOR. NEW MEDICATIONS FAXED TO [facility] IS CLOSED TODAY. OFF UNIT VIA W/C AT 1220. NO PERSONAL BELONGINGS LEFT BEHIND IN ROOM.
== END 2023-05-28 12:25 | disposition home or self-care (01) | DRG 291 ==
LOC: ER 00:12 → MEDS 03:26 → ENPENDDIS 05-28 08:32 → MEDS 05-28 12:25
PROVIDERS: Internal Medicine; Student in an Organized Health Care Education/Training Program; ADMIT Internal Medicine
PROC: 5A09357 Assistance with Respiratory Ventilation, Less than 24 Consecutive Hours, Continuous Positive Airway Pressure (ICD-10-PCS; principal; 2023-05-21)
DX: I50.33 Acute on chronic diastolic (congestive) heart failure (principal); J18.9 Pneumonia, unspecified organism; J96.01 Acute respiratory failure with hypoxia; I48.20 Chronic atrial fibrillation, unspecified; C91.10 Chronic lymphocytic leukemia of B-cell type not having achieved remission; C85.80 Other specified types of non-Hodgkin lymphoma, unspecified site; E87.20 Acidosis, unspecified; J43.9 Emphysema, unspecified; G47.33 Obstructive sleep apnea (adult) (pediatric); F32.A Depression, unspecified; I27.29 Other secondary pulmonary hypertension; E11.40 Type 2 diabetes mellitus with diabetic neuropathy, unspecified; I07.1 Rheumatic tricuspid insufficiency; E03.9 Hypothyroidism, unspecified; K21.9 Gastro-esophageal reflux disease without esophagitis; Z88.2 Allergy status to sulfonamides; Z88.8 Allergy status to other drugs, medicaments and biological substances; Z79.4 Long term (current) use of insulin; Z79.01 Long term (current) use of anticoagulants; Z79.85 Long-term (current) use of injectable non-insulin antidiabetic drugs; Z11.52 Encounter for screening for COVID-19
CPT/HCPCS: 0241U; 36415; 71046; 71260; 80048; 80053; 80069; 82803; 82947; 83735; 83880; 84145; 84484; 85025; 85027; 93005; 93010; 93306; 94640; 94660; 94664; 94761; 94762; 96374; 99285-25; A9270; J0696; J1815; J1940; Q9967

== ENCOUNTER 2023-06-03 04:22 | Inpatient (IN) | payer OTHER ==
[~2023-06-03] VITALS: Ht 185.4 cm; Wt 118.0 kg
[~2023-06-03 04:22] MED LIST changes: +AMITRIPTYLINE H25 MG PO; +ATOM40 PO; +CEFU500T30 PO; -COMBIVENT RESPIM4 G1; +DILTIAZEM 24HR180 M4 PO; -DILTIAZEM 24HR360 MG PO; +DOXY100 PO; +FAMO20 PO; +FURO20 PO; +IPRAT-ALBUT 0.5-3 ML INH; +LIPITOR80 MG PO; +PREG50 PO; +SPIRONOLACTONE25 MG PO; +VISBIOME 112.51 EACH PO
[2023-06-03 05:46] LABS: Hemoglobin 11.7 g/dL (13.5-17.5); Mean Corpuscular HGB 21.7 pg (26.0-34.0); Mean Corpuscular HGB Conc 29.3 g/dL (31.5-36.5); Mean Corpuscular Volume 74 fL (80-100); Mean Platelet Volume 11.7 fL (9.1-12.4); Platelet Count 272 K/mm3 (150-400); RDW Coefficient Variation 16.1 % (11.7-14.2); RDW Standard Deviation 42.4 fL (35.1-46.3); Red Blood Cell Count 5.39 M/mm3 (4.30-5.90); White Blood Cell Count 28.94 K/mm3 (4.00-11.30)
[2023-06-03 06:09] LABS: Albumin, Blood 3.9 g/dL (3.4-5.0); Albumin/Globulin Ratio 0.8 (0.8-1.8); Bilirubin, Total 0.6 mg/dL (0.1-1.0); Bun/Creatinine Ratio 23.5 (12.0-20.0); Calcium, Blood 9.1 mg/dL (8.5-10.1); Creatinine, Blood 0.81 mg/dL (0.60-1.20); Globulin, Blood 4.6 g/dL (2.2-4.0); Magnesium, Blood 2.1 mg/dL (1.6-2.4); Potassium, Blood 4.6 mmol/L (3.5-5.5); Total Protein, Blood 8.5 g/dL (6.4-8.2)
[2023-06-03 07:19] LABS: BAND PERCENT MAN 1 % (0-8); BASOPHILS PERCENT MAN 0 % (0-2); EOSINOPHILS ABSOLUTE MAN 0.28 K/mm3 (0.00-0.68); EOSINOPHILS PERCENT MAN 1 % (0-6); LYMPHOCYTES % ATYPICAL MANUAL 1 % (0-0); LYMPHOCYTES ABSOLUTE MAN 11.86 K/mm3 (0.84-5.20); LYMPHOCYTES PERCENT MAN 40 % (21-46); MONOCYTES ABSOLUTE MAN 0.86 K/mm3 (0.16-1.47); MONOCYTES PERCENT MAN 3 % (4-13); NEUTROPHILS ABSOLUTE MAN 15.91 K/mm3 (1.96-9.15); SEG NEUTROPHILS PERCENT MAN 54 % (41-73); TOTAL CELLS COUNTED 100
[2023-06-03 08:17] LABS: Adenovirus Not Detected (NOT DETECT); Bordetella pertussis Not Detected (NOT DETECT); Chlamydophila pneumoniae Not Detected (NOT DETECT); Coronavirus 229E Not Detected (NOT DETECT); Coronavirus HKU1 Not Detected (NOT DETECT); Coronavirus NL63 Not Detected (NOT DETECT); Coronavirus OC43 Not Detected (NOT DETECT); Human Metapneumovirus Not Detected (NOT DETECT); Human Rhinovirus/Enterovirus Not Detected (NOT DETECT); Influenza A/2009-H1 Not Detected (NOT DETECT); Influenza A/H1 Not Detected (NOT DETECT); Influenza A/H3 Not Detected (NOT DETECT); Influenza B Not Detected (NOT DETECT); Mycoplasma pneumoniae Not Detected (NOT DETECT); Parainfluenza Virus 1 Not Detected (NOT DETECT); Parainfluenza Virus 2 Not Detected (NOT DETECT); Parainfluenza Virus 3 Not Detected (NOT DETECT); Parainfluenza Virus 4 Not Detected (NOT DETECT); Respiratory Syncytial Virus Not Detected (NOT DETECT); SARS-Cov-2 (COVID-19), BioFire Not Detected (NOT DETECT)
[2023-06-03 10:50] VITALS: BP 139/79
[2023-06-03 11:42] VITALS: BP 137/91
--- NOTE | 2023-06-03 12:18 | NUR ---
ADMIT TO PCU AT 1050 THIS AM. PATIENT ABLE TO STAND AND TRANSFER WITH SBA. CHRONIC NEUROPATHY REPORTED TO BILATERAL LOWER EXTREMITIES. ABLE TO MOVE ALL EXTREMITIES WNL. PERRLA, WEARING GLASSES. SKIN COOL TO TOUCH. DENIES PAINS. TELE SHOWING AFIB WITH HR 90-120'S. SBP 130'S. DENIES CHEST PAIN/PRESSURE/PALPITATIONS. PPP. IV SALINE LOCKED. PO MEDICATIONS GIVEN PER EMAR. ON 3L NASAL CANNULA UPON ADMIT SATING ABOE 95%. PATIENT STATES HE IS STILL FEELING SLIGHTLY SOB, BUT OVERALL IMPROVED. HOME CPAP AT BEDSIDE, RT TO SET UP. PATIENT REPORTS WEARING RA AT REST, 1L WITH ACTIVITY AND 4.5L WITH CPAP AT NOC. EVEN AND UNLABORED RESPIRATIONS. SOB WHEN TALKING ALOT AND MOVING AROUND IN BED. RT IN TO GIVE BREATHING TREATMENT. BOWEL TONES PRESENT. DENIES ABDOMINAL PAIN/NAUSEA. SWALLOWING PILLS WHOLE WITH WATER. VOIDING WNL. PATIENT STATES LAST BM WAS LAST NIGHT. ACHS BLOOD SUGARS. EATING LUNCH AT THIS TIME. STRICT I/O. SKIN OVERALL PALE AND COOL TO TOUCH. ABRASION TO RIGHT LOWER EXTREMITY AND REDNESS TO COCCYX. SEE PICTURES IN CHART. ORIENTED TO ROOM/UNIT. CALL LIGHT IN REACH. MED REC COMPLETED. PATIENT DENIES NEEDS AT THIS TIME.
[2023-06-03 15:05] VITALS: BP 127/65
--- NOTE | 2023-06-03 17:30 | NUR ---
SHIFT SUMMARY: PATIENT REMAINS ALERT AND ORIENTED. AFIB WITH HR 80-90'S. SBP 120'S. DENIES CHEST PAIN/PRESSURE. ON 7L HIGH FLOW SATING MID 90'S. HOME CPAP SET UP BY RT. IV LASIX GIVEN THIS EVENING. PATIENT USING URINAL TO VOID. LARGE BOWEL MOVEMENT THIS AFTERNOON. COMPLAINS OF BILATERAL LOWER EXTREMITY NEUROPATHY PAIN AND REQUESTING "LIDOCAINE CREAM". CALL PLACED TO DR. MONTOYA. ORDERS FOR LIDOCAINE 4% TOPICAL CREAM PRN. ACHS BLOOD SUGARS WITH INSULIN COVERAGE. STRICT I/O. CALL LIGHT IN REACH. DENIES NEEDS AT THIS TIME.
[2023-06-03 20:31] VITALS: BP 110/77
[2023-06-03 23:59] VITALS: BP 135/82
[2023-06-04 03:45] LABS: BASOPHILS ABSOLUTE AUTO 0.09 K/mm3 (0.00-0.23); BASOPHILS PERCENT AUTO 1 % (0-2); EOSINOPHILS ABSOLUTE AUTO 0.19 K/mm3 (0.00-0.68); EOSINOPHILS PERCENT AUTO 1 % (0-6); Hematocrit 31.6 % (37.0-53.0); Hemoglobin 9.1 g/dL (13.5-17.5); Mean Corpuscular HGB 21.2 pg (26.0-34.0); Mean Corpuscular HGB Conc 28.8 g/dL (31.5-36.5); Mean Corpuscular Volume 74 fL (80-100); Mean Platelet Volume 11.3 fL (9.1-12.4); Platelet Count 218 K/mm3 (150-400); RDW Coefficient Variation 16.2 % (11.7-14.2); RDW Standard Deviation 42.7 fL (35.1-46.3); White Blood Cell Count 16.31 K/mm3 (4.00-11.30)
[2023-06-04 03:54] LABS: IMMATURE GRAN ABSOLUTE AUTO 0.08 K/mm3 (0.00-0.10); IMMATURE GRAN PERCENT AUTO 1 % (0-1); LYMPHOCYTES ABSOLUTE AUTO 8.07 K/mm3 (0.84-5.20); LYMPHOCYTES PERCENT AUTO 50 % (21-46); MONOCYTES ABSOLUTE AUTO 1.61 K/mm3 (0.16-1.47); MONOCYTES PERCENT AUTO 10 % (4-13); NEUTROPHILS ABSOLUTE AUTO 6.27 K/mm3 (1.96-9.15); NEUTROPHILS PERCENT AUTO 38 % (41-73)
[2023-06-04 04:06] VITALS: BP 128/80
[2023-06-04 04:11] LABS: Albumin/Globulin Ratio 0.8 (0.8-1.8); Bilirubin, Total 0.7 mg/dL (0.1-1.0); Bun/Creatinine Ratio 16.4 (12.0-20.0); Calcium, Blood 8.8 mg/dL (8.5-10.1); Creatinine, Blood 0.91 mg/dL (0.60-1.20); Globulin, Blood 3.6 g/dL (2.2-4.0); Magnesium, Blood 1.9 mg/dL (1.6-2.4); Potassium, Blood 3.8 mmol/L (3.5-5.5); Total Protein, Blood 6.6 g/dL (6.4-8.2)
--- NOTE | 2023-06-04 06:30 | NUR ---
End of shift note. Pt has been resting with CPAP in place for much of the shift. At HS Pt did have some complaints of loose stools and requesting a "Pepto". RN looked into MAR and it seems Pt received a stool softner at admit. RN suggested to wait and see if loose stools improve, Pt agreed. No additional since HS. Pt has been getting to the bathroom independently. Pt was given education on the importance of using urinal to measure output. Pt has been on 5L nc while awake, 6-7L bleed in for CPAP. Pt is able to make needs known, call light is within reach.
--- NOTE | 2023-06-04 09:00 | NUR ---
Received report around 0700 and patient has been sleeping with CPAP in placeand has 5L bleed in and sats >90%. He is currently alert and oriented and is independent in room and is very stable. He has 20ga IV RAc and flushed and SL's. He was awake briefly and went back to sleep shortly after leaving the room. VS stable. Patient deenies any pain or SOB while wearingnasal CPAP
[2023-06-04 10:49] VITALS: BP 103/59
--- NOTE | 2023-06-04 11:30 | NUR ---
Patient up in room to use bathroom independently and had clear yellow urine output, see I&O. He is on NC at 5L O2 via NC when not on Nasal CPAP and continues to sat >90%. He is independnet in vance with BRP and repositioning for comfort. Dr Harry by and increased Lasix to 40 mg and reminded patient to use urinal to get better output record. No Other new orders and now is Med tele. He went back to resting with NC on watching TV. Contineues to MAUDE.
[2023-06-04 14:05] VITALS: BP 106/65
--- NOTE | 2023-06-04 15:30 | NUR ---
No significant changes with patient denies any SOB or current needs. He remains awake watching TV with NC on 5L O2 and sats >90%. He remains indepenent in room and call light within reach.
[2023-06-04 17:12] VITALS: BP 98/45
--- NOTE | 2023-06-04 18:15 | NUR ---
Patient sitting up in bed watching TV on 3L O2 via NC and sats >90%. He states his food order was wrong and did not want it, aid asked if he wanted soemthing else and he stated "no". He remains independent in bed and for BRP. We are continueing strict I&O's. Increased Lasix given. No Other significant changes with patient. Dr Harry re-eval fluids tomprrow and breathing with decreased O2 use.
[2023-06-04 20:45] VITALS: BP 119/76
[2023-06-05 02:28] VITALS: BP 120/79
--- NOTE | 2023-06-05 06:37 | NUR ---
END OF SHIFT NOTE. PT WAS AWAKE UNTIL AFTER MIDNIGHT, REPORTING THAT HE SLEPT FOR MUCH OF THE MORNING. PT WAS ON 3L NC WHILE AWAKE. AFTER PUTTING ON CPAP, PT REQUIRED AN INCREASE IN O2 BLEED IN. PT WAS SUSTAINING SATS 84-88% FOR A SIGNIFICANT AMOUNT OF TIME. RT WAS PHONED TO NOTIFY AND INCREASED O2 TO 12L, REPORTING HE IS MOUTH BREATHING. PT IS ABLE TO MAKE NEEDS KNOWN, CALL LIGHT IS WITHIN REACH.
[2023-06-05 06:55] VITALS: BP 114/71
--- NOTE | 2023-06-05 07:15 | NUR ---
Received report from Akua CHAVEZ. Patient arouses easily when entering room for VS. He is on CPAP with nasal mask and 12 L bleed in which is a increase from yesterday and sats >90%. He is alert and oriented and is able to communicate his needs. He is independent in bed and with BRP. He has been reoriented to the need for strict I&O's. He MAEW. He has 20ga IV to RAC and is flushed and SL'd. He states no current needs.
[2023-06-05 09:07] LABS: BASOPHILS PERCENT AUTO 1 % (0-2); EOSINOPHILS ABSOLUTE AUTO 0.19 K/mm3 (0.00-0.68); EOSINOPHILS PERCENT AUTO 1 % (0-6); Hematocrit 33.3 % (37.0-53.0); Hemoglobin 9.9 g/dL (13.5-17.5); Mean Corpuscular HGB 21.8 pg (26.0-34.0); Mean Corpuscular HGB Conc 29.7 g/dL (31.5-36.5); Mean Corpuscular Volume 73 fL (80-100); Mean Platelet Volume 11.7 fL (9.1-12.4); Platelet Count 237 K/mm3 (150-400); RDW Coefficient Variation 16.5 % (11.7-14.2); RDW Standard Deviation 42.9 fL (35.1-46.3); Red Blood Cell Count 4.54 M/mm3 (4.30-5.90); White Blood Cell Count 18.06 K/mm3 (4.00-11.30)
[2023-06-05 09:25] LABS: IMMATURE GRAN ABSOLUTE AUTO 0.14 K/mm3 (0.00-0.10); IMMATURE GRAN PERCENT AUTO 1 % (0-1); LYMPHOCYTES ABSOLUTE AUTO 7.63 K/mm3 (0.84-5.20); LYMPHOCYTES PERCENT AUTO 42 % (21-46); MONOCYTES ABSOLUTE AUTO 1.82 K/mm3 (0.16-1.47); MONOCYTES PERCENT AUTO 10 % (4-13); NEUTROPHILS ABSOLUTE AUTO 8.18 K/mm3 (1.96-9.15); NEUTROPHILS PERCENT AUTO 45 % (41-73)
[2023-06-05 09:26] LABS: Bun/Creatinine Ratio 21.5 (12.0-20.0); Creatinine, Blood 0.84 mg/dL (0.60-1.20)
--- NOTE | 2023-06-05 11:30 | NUR ---
Patient has been resting on 4L via NC while watching TV. RT has been in room titraing O2 for saturations. He continues to be alert and oriented and is able to communicate his needs. He is continuely reminded to do strict I&O. No significant changes with patient. Dr Harry has been by to assess and no new orders.
[2023-06-05 13:45] VITALS: BP 110/72
--- NOTE | 2023-06-05 15:30 | NUR ---
Patient has been using CPAP intermitently with 12 L bleedin and desats into low 80's at times with good pleth and when entering room and awaken him sats increase. Spoke with RT and they asked for order for using hospital CPAP to allow adjustments to see if pressure c hanges will work. Talked with Dr Harry and she agreed. and had me place order. When he is not wearing CPAP he has 3-4L O2 via NC and does >90% sats. He remains independent in room and in bed. Cbg's have increased today and will change top abdomen to see if works better. He has tolerated meals well.
--- NOTE | 2023-06-05 18:00 | NUR ---
RT has place CPAP in room and they will trial some setting tonite while sleeping. No significant changes with patient throughout shift and just awaiting transfer to med floor. He has been tolerating increase in lasix from yesterday.
[2023-06-05 18:13] VITALS: BP 113/72
[2023-06-05 18:14] VITALS: BP 113/72
[2023-06-05 20:57] VITALS: BP 112/75
[2023-06-06 05:32] LABS: BASOPHILS ABSOLUTE AUTO 0.07 K/mm3 (0.00-0.23); BASOPHILS PERCENT AUTO 0 % (0-2); EOSINOPHILS ABSOLUTE AUTO 0.21 K/mm3 (0.00-0.68); EOSINOPHILS PERCENT AUTO 1 % (0-6); Hematocrit 30.1 % (37.0-53.0); Hemoglobin 9.1 g/dL (13.5-17.5); Mean Corpuscular HGB 21.8 pg (26.0-34.0); Mean Corpuscular HGB Conc 30.2 g/dL (31.5-36.5); Mean Corpuscular Volume 72 fL (80-100); Mean Platelet Volume 10.9 fL (9.1-12.4); Platelet Count 211 K/mm3 (150-400); RDW Standard Deviation 41.1 fL (35.1-46.3); Red Blood Cell Count 4.18 M/mm3 (4.30-5.90); White Blood Cell Count 16.55 K/mm3 (4.00-11.30)
[2023-06-06 05:41] LABS: IMMATURE GRAN ABSOLUTE AUTO 0.08 K/mm3 (0.00-0.10); IMMATURE GRAN PERCENT AUTO 1 % (0-1); LYMPHOCYTES ABSOLUTE AUTO 8.19 K/mm3 (0.84-5.20); LYMPHOCYTES PERCENT AUTO 50 % (21-46); MONOCYTES ABSOLUTE AUTO 2.23 K/mm3 (0.16-1.47); MONOCYTES PERCENT AUTO 14 % (4-13); NEUTROPHILS ABSOLUTE AUTO 5.77 K/mm3 (1.96-9.15); NEUTROPHILS PERCENT AUTO 35 % (41-73)
[2023-06-06 05:43] VITALS: BP 114/66
[2023-06-06 05:49] LABS: Bun/Creatinine Ratio 24.8 (12.0-20.0); Calcium, Blood 8.8 mg/dL (8.5-10.1); Creatinine, Blood 0.89 mg/dL (0.60-1.20); Potassium, Blood 4.1 mmol/L (3.5-5.5)
--- NOTE | 2023-06-06 06:43 | NUR ---
SHIFT SUMMARY PATIENT ALERT AND ORIENTED X4. INDEPENDENT IN ROOM. DENIES PAIN AND SHORTNESS OF BREATH. CONTINUES ON 3 LITERS O2 WHILE AWAKE, CPAP WHILE SLEEPING WITH 8 LITER BLEED IN. VITAL SIGNS STABLE, RATE CONTROLLED AFIB ON TELE. NO ACUTE ISSUES NOTED OVERNIGHT. WILL CONTINUE TO MONITOR. CALL LIGHT WITHIN REACH.
[2023-06-06 08:40] VITALS: BP 105/72
[2023-06-06 10:00] VITALS: BP 112/74
--- NOTE | 2023-06-06 10:45 | NUR ---
PATIENT BLOOD PRESSURES FAIRLY LOW AT 0800 105/70S , LASIX GIVEN AND BP RECHECKED IN AN HOUR. BP 112/76 HR 70S. METOPROLOL AND DILTIAZEM GIVEN AND DR BEATTY NOTIFIED. ORDER RECIEVED TO MOVE LISINOPRIL FROM AM TO PM TODAY. PATIENT NOTIFIED. WILL CONTINUE TO MONITOR.
[2023-06-06 11:40] VITALS: BP 107/73
[2023-06-06 16:57] VITALS: BP 126/76
--- NOTE | 2023-06-06 18:14 | NUR ---
SHIFT SUMMARY PATIENT STANDING UP TO USE URINAL, O2 SAT ON 4LPM 88-90%, INCREASES TO 91-93 ON 5LPM. PATIENT WITH NO ACUTE EVENTS DURING SHIFT. BED IN LOW POSITION, CALL LIGHT IN REACH. PATIENT ABLE TO MAKE NEEDS KNOWN. WILL CONTINUE TO MONITOR.
[2023-06-06 21:12] VITALS: BP 122/71
[2023-06-07 05:59] VITALS: BP 108/65
[2023-06-07 06:31] LABS: Hematocrit 32.3 % (37.0-53.0); Hemoglobin 9.4 g/dL (13.5-17.5); Mean Corpuscular HGB 21.1 pg (26.0-34.0); Mean Corpuscular HGB Conc 29.1 g/dL (31.5-36.5); Mean Corpuscular Volume 73 fL (80-100); Mean Platelet Volume 10.9 fL (9.1-12.4); Platelet Count 218 K/mm3 (150-400); RDW Coefficient Variation 16.1 % (11.7-14.2); RDW Standard Deviation 41.6 fL (35.1-46.3); Red Blood Cell Count 4.45 M/mm3 (4.30-5.90); White Blood Cell Count 15.89 K/mm3 (4.00-11.30)
--- NOTE | 2023-06-07 06:43 | NUR ---
SHIFT SUMMARY PATIENT ALERT AND ORIENTED X4. INDEPENDENT IN HIS ROOM. HAD NO COMPLAINTS OF PAIN OR SHORTNESS OF BREATH. SLEEP OXYMETRY STUDY CONDUCTED BY RT. SPO2 LABILE WHEN ON CPAP OR BIPAP. VITAL SIGNS STABLE, AFIB ON TELE. WILL CONTINUE TO MONITOR. CALL LIGHT WITHIN REACH.
[2023-06-07 06:48] LABS: Bun/Creatinine Ratio 29.7 (12.0-20.0); Calcium, Blood 8.8 mg/dL (8.5-10.1); Creatinine, Blood 0.84 mg/dL (0.60-1.20)
[2023-06-07 07:16] LABS: BASOPHILS ABSOLUTE MAN 0.15 K/mm3 (0.00-0.23); BASOPHILS PERCENT MAN 1 % (0-2); EOSINOPHILS ABSOLUTE MAN 0.15 K/mm3 (0.00-0.68); EOSINOPHILS PERCENT MAN 1 % (0-6); LYMPHOCYTES % ATYPICAL MANUAL 2 % (0-0); LYMPHOCYTES ABSOLUTE MAN 10.01 K/mm3 (0.84-5.20); LYMPHOCYTES PERCENT MAN 61 % (21-46); MONOCYTES ABSOLUTE MAN 0.31 K/mm3 (0.16-1.47); MONOCYTES PERCENT MAN 2 % (4-13); NEUTROPHILS ABSOLUTE MAN 5.24 K/mm3 (1.96-9.15); SEG NEUTROPHILS PERCENT MAN 33 % (41-73); TOTAL CELLS COUNTED 100
[2023-06-07 07:37] VITALS: BP 117/86
--- NOTE | 2023-06-07 08:12 | NUR ---
Pt was awakened for vital signs and CBG checks. He has no complaints nor requests at that time. Wearing his bipap, settings 14/10 and 14 l/min bleed in. The oxygen bleed in had to be increased from 13 l/min at time of bedside report at 0730 to 13 l/min as his spo2 had dropped from 88% to 84%, per the supercharger mechanic. Now he is 99-100% spo2 on the bipap with the 14l/m bleed in. Noted there is a very large insulated mug from home and a 2 l diet coke at the bedside. Per the I&O he is negative on fluids, but will verify with others paricipating in his care that this is being closely and carefully documented.
[2023-06-07 11:40] VITALS: BP 117/76
--- NOTE | 2023-06-07 14:36 | NUR ---
pt fell asleep while wearing nasal cannula with O2 delivery at 5 l/min (states his home dose is 4.5 l/min). Spo2 dropped to 86% and I was notified by alarm. Pt was placed on Bipap at bedside, O2 bleed in @ 5 l/min. spo2 is holding while he is sleeping now at 88-90%.
--- NOTE | 2023-06-07 14:38 | NUR ---
pt fell asleep while wearing nasal cannula with O2 delivery at 5 l/min (states his home dose is 4.5 l/min). Spo2 dropped to 86% and I was notified by alarm. Pt was placed on Bipap at bedside, O2 bleed in @ 8 l/min. spo2 is holding while he is sleeping now at 88-90%.
--- NOTE | 2023-06-07 15:30 | NUR ---
SPO2 93-94% while sleeping, 5 l/min bleed in on bipap.
--- NOTE | 2023-06-07 15:35 | NUR ---
SPO2 93-94% while sleeping, 5 l/min bleed in on bipap.
[2023-06-07 16:29] VITALS: BP 107/67
--- NOTE | 2023-06-07 17:06 | NUR ---
Pleasant, conversant and cooperative today with all aspects of care. Mostly stayed in bed, either lying down or sitting upright. Did ambulate once to the bathroom to have a BM this morning. Oxygen needs have been 5 l/min n.c. while awake, and he wore the bipap with 8 l/min bleed in this afternoon during a nap. Maintained spo2 greater than 90% with these measures in place, as long as he was wearing the bipap while sleeping.
[2023-06-07 22:04] VITALS: BP 126/79
[2023-06-08] VITALS (7 sets, daily range): BP systolic 99–127; BP diastolic 57–77
--- NOTE | 2023-06-08 06:25 | NUR ---
SHIFT SUMMARY PATIENT ALERT AND ORIENTED X4. INDEPENDENT IN HIS ROOM. HAD NO COMPMLAINTS OF PAIN OR SHORTNESS OF BREATH. NO CHANGES IN OXYGENATION NEEDS, BIPAP REMAINED ON AN 8 LITER BLEED. VITAL SIGNS STABLE, AFIB IN THE 80'S ON TELE. NO ACUTE ISSUES NOTED OVERNIGHT. WILL CONTINUE TO MONITOR. CALL LIGHT WITHIN REACH.
--- NOTE | 2023-06-08 08:32 | NUR ---
Per noc shift report, pt was on bipap all night with 8 liters O2 bleed in and was stable. He is now sitting on side of the bed, wearing 5 l/min O2 by n.c. and has eaten breakfast. No distress, no dyspnea noted. Spo2 91-93%. He has no voiced needs this morning.
--- NOTE | 2023-06-08 08:41 | NUR ---
Dr. Harry here to round on the patient.
--- NOTE | 2023-06-08 09:55 | NUR ---
Dr. Brewster here rounding on the patient.
--- NOTE | 2023-06-08 14:04 | NUR ---
Pt was put on bipap around 1330 since he was getting ready to nap. About 30 minutes later, spo2 dropped to 68% with good pleth. He was asleep, with the bipap on and bleed in O2 at 8 liters. Oxygen delivery increased to 15 liters and spo2 started to improve to 80%. He awakened, said he had to void. He was in no distress. Sat on side of bed, voided, and then helped with bipap again so that he could nap. spo2 was 96% then at that time.
--- NOTE | 2023-06-08 14:42 | NUR ---
SPO2 dropped to 86% while sleeping, on bipap, 10 liter bleed in O2. Increased o2 bleed in to 12 liters, no improvement. Turned up to 14 l bleed in, and spo2 improved to 90% within 2 minutes. RR 11/minute while sleeping.
[2023-06-09] VITALS (7 sets, daily range): BP systolic 86–108; BP diastolic 60–72
--- NOTE | 2023-06-09 04:15 | NUR ---
SHIFT SUMMARY. SHIFT HAS BEEN LARGELY UNREMARKABLE. PT AOX4, PLEASANT, COOPERATIVE WITH CARE. INDEPENDENT WITHIN ROOM. TELE ON THROUGHOUT SHIFT WITH NO EVENTS THUS FAR. ALL I+O DOCUMENTED OVER THE COURSE OF THIS SHIFT. NO PAIN REPORTED. CALLS APPROPRIATELY FOR ASSISTANCE. HAS BEEN WEARING CPAP THROUGHOUT MOST OF NIGHT AND MAINTAINING SATURATIONS >90% ON 8 L O2 BLEED IN. WAS SPORADICALLY DESATURATING WHILE NODDING OFF WHILE WEARING NC BEFORE PUTTING CPAP ON. 1500 ML FLUID RESTRICTION REMAINS IN PLACE. BED LOCKED IN LOWEST POSITION. CALL LIGHT LEFT WITHIN REACH. CONTINUING TO MONITOR.
--- NOTE | 2023-06-09 09:54 | NUR ---
AM NOTE this rn assumed care at 0700. bedside report done with zoran watt. vital signss table. spo2 range 89-92% on 7l nc, since assuming care this rn titrated oxygen to 9l nc due to patient dropping into the mid 80s. patient is alert and oriented x4. perrla. neuro is intact. patient is able to make needs known, use call light appropriately and perform adls independently. patient reports no pain, chest pain/pressure or shortness of breath. see shift assessment for further detials. this rn spoke with md nick about holding mornign cardizem and metoprolol. md nick agreed with the plan to hold, and md nick placed new orders, see orders. plan is to continue to diuresis.
[2023-06-09 10:32] LABS: Bun/Creatinine Ratio 24.8 (12.0-20.0); Calcium, Blood 9.1 mg/dL (8.5-10.1); Creatinine, Blood 1.05 mg/dL (0.60-1.20); Potassium, Blood 3.9 mmol/L (3.5-5.5)
--- NOTE | 2023-06-09 18:14 | NUR ---
shift summary patient neuro remains unchaged. vital signs stable. bp improved throughout the day, see vital signs. RT in room today titrated oxygen. on 7l nc with spo2 >90%. no acute changes since pervious note. plan of care remains up to date
[2023-06-10 00:02] VITALS: BP 107/71
[2023-06-10 03:09] VITALS: BP 98/71
[2023-06-10 04:32] LABS: Bun/Creatinine Ratio 23.7 (12.0-20.0); Calcium, Blood 8.5 mg/dL (8.5-10.1); Creatinine, Blood 1.31 mg/dL (0.60-1.20); Magnesium, Blood 1.8 mg/dL (1.6-2.4); Potassium, Blood 3.8 mmol/L (3.5-5.5)
--- NOTE | 2023-06-10 04:58 | NUR ---
SHIFT SUMMARY. PT HAS BEEN DOING WELL THIS SHIFT THUS FAR. AOX4, PLEASANT, COOPERATIVE WITH CARE. PT HAS BEEN WEARING CPAP THROUGHOUT MOST OF SHIFT WITH 10 L O2 BLEED IN AND HAS BEEN MAINTAINING SATURATIONS >92%. WHILE AWAKE, PT WAS WEARING 7 L O2 VIA NC. ATTEMPTED TO TITRATE DOWN EARLY IN SHIFT PT BUT WOULD EXPERINCE SPORADIC DESATURATIONS SO 02 WAS TUNED BACK UP TO 8 L 02 VIA NC. NO DESATURATIONS EXPERIENCED THEREAFTER. NO PAIN REPORTED THIS SHIFT. INDEPENDENT WITHIN ROOM. ALL URINE OUTPUT CHARTED. PT USES CALL LIGHT APPROPRIATELY AND IS ABLE TO MAKE NEEDS KNOWN. BED LOCKED IN LOWEST POSITION. CALL LIGHT LEFT WITHIN REACH. CONTINUING TO MONITOR.
[2023-06-10 08:50] VITALS: BP 98/72
--- NOTE | 2023-06-10 09:32 | NUR ---
CARE OF PT ASSUMED AT 0700. PT INITIALLY SLEEPING W CPAP ON W 10L BLEED IN. PT AWAKE FOR BREAKFAST, SATS >90% ON 7L VIA N/C. PT DENIES COMPLAINTS. PT HYPOTENSIVE W MAP >65. PT UP TO BATHROOM W/O ISSUES. LUNGS CLEAR. PT REQUEST STOOL SOFTENER.
--- NOTE | 2023-06-10 09:57 | NUR ---
DR BEATTY IN TO SEE PT, UPDATE GIVEN. COLACE ORDERED AND GIVEN. ORDERS TO RECHECK BP IN A COUPLE HOURS AND TO GIVE METOPROLOL IF SBP >100. PT DESTAURATED TO 84% WHILE SLEEPING WITH O2 AT 7L VIA N/C. CPAP PLACED, SATS NOW >90%.
--- NOTE | 2023-06-10 10:34 | NUR ---
PT'S SATS DROPPED INTO LOW 80'S WHILE SLEEPING ON CPAP, O2 INCREASED TO 14L BLEED-IN BY INVESTIGATOR INTERNAL REVENUE, RT NOTIFIED.
[2023-06-10 12:08] VITALS: BP 107/77
[2023-06-10 17:04] VITALS: BP 129/83
--- NOTE | 2023-06-10 17:14 | NUR ---
HEART RATE HAS BEEN TRENDING UPWARD T/O SHIFT. HEART RATE 110-130'S, UP TO 150 BRIEFLY WITH ACTIVITY. PT IS ASYMPTOMATIC TO HIGHER RATE, BP STABLE. DR BEATTY CALLED, AWAITING CALL BACK.
--- NOTE | 2023-06-10 18:04 | NUR ---
DR BEATTY GIVEN UPDATE REGARDING HEART RATE/RHTHYM. CARDIZEM PO ORDERED
[2023-06-10 19:46] VITALS: BP 109/78
--- NOTE | 2023-06-10 20:41 | NUR ---
PT HEART RATE HAS BEEN LABILE THUS FAR THIS SHIFT, RUNNING ANYWHERE BETWEEN 100s-150s. PT RESTING IN BED, COMFORTABLE, DENIES ANY NEW CHANGES IN CONDITION. VITALS OTHERWISE STABLE. 2100 TOPROL ADMINISTERED. PER REPORT, ONE TIME DOSE OF ORAL CARDIZEM WAS GIVEN THIS EVENING TO HELP PROMOTE RATE CONTROL. CALLED TO NOTIFY RESIDENT. DIRECTED TO MONITOR HEART RATE AND NOTIFY RESIDENT AGAIN SHOULD PT SUSTAIN >120s. ALSO REQUESTED TO START BOWEL CARE MEDICATIONS PT REPORTED FEELING CONSTIPATED. ORDERED 100 MG DOCUSATE BID AND MIRALAX DAILY. ORDERS ENTERED AND TO BE ADMINISTERED.
--- NOTE | 2023-06-10 21:52 | NUR ---
PT HEART RATE HAS CONSISTENTLY SUSTAINED >120 FOR MORE THAN 20 MINUTES WITH ONLY BRIEF DROPS. CALLED TO NOTIFY RESIDENT DR. STEPHEN. ORDERED LOPRESSOR 5 MG IV NOW. ORDER ENTERED AND TO BE ADMINISTERED WHEN AVAILABLE.
--- NOTE | 2023-06-10 23:17 | NUR ---
PT HEART RATE HAS BASICALLY MAINTAINED IN SAME RANGE PRE AND POST IV LOPRESSOR ADMINISTRATION. CALLED RESIDENT DR. STEPHEN TO NOTIFY. DIRECTED TO MONITOR PT FOR NOW FOR ANY CHANGES OR IF PT SUSTAINS >140s-150s AND NOTIFY IF THIS OCCURS. MONITORING FOR NOW.
[2023-06-11] VITALS (9 sets, daily range): BP systolic 94–117; BP diastolic 60–98
[2023-06-11 04:01] LABS: Hematocrit 32.3 % (37.0-53.0); Hemoglobin 9.7 g/dL (13.5-17.5); Mean Corpuscular HGB 21.6 pg (26.0-34.0); Mean Corpuscular Volume 72 fL (80-100); Mean Platelet Volume 11.4 fL (9.1-12.4); Platelet Count 243 K/mm3 (150-400); RDW Coefficient Variation 16.5 % (11.7-14.2); RDW Standard Deviation 42.4 fL (35.1-46.3); White Blood Cell Count 19.93 K/mm3 (4.00-11.30)
[2023-06-11 04:22] LABS: Bun/Creatinine Ratio 25.9 (12.0-20.0); Calcium, Blood 8.6 mg/dL (8.5-10.1); Creatinine, Blood 1.39 mg/dL (0.60-1.20)
--- NOTE | 2023-06-11 04:31 | NUR ---
SHIFT SUMMARY. PT HAS BEEN DOING WELL THIS SHIFT, NO ACUTE CHANGES. REMAINS AOX4, PLEASANT, COOPERATIVE WITH CARE. HAS BEEN ON CPAP THROUGHOUT MOST OF NIGHT WHILE SLEEPING. 12 L O2 BLEED IN ON CPAP WITH NO EVENTS OF DESATURATION THUS FAR. PT HEART RATE WAS TRENDING HIGH THROUGHOUT MOST OF EARLY PARTS OF SHIFT, SEE RELATED NOTE FOR DETAILS. FOR LAST SEVERAL HOURS WHILE PT HAS BEEN SLEEPING, HR HAS BEEN TRENDING LOWER IN THE 90s-100s. VITALS HAVE BEEN STABLE. I+Os HAVE BEEN CHARTED OUTSIDE OF PT EMPTYING URINAL ON HIS OWN ONCE THIS MORNING WITHOUT NOTIFYING STAFF OF NEED TO BE EMPTIED AND THE AMOUNT THAT WAS EMPTIED. REEDUCATED ON NEED TO HAVE STAFF DOCUMENT ALL OUTPUT. PT COMPLAINED OF FEELINGS OF CONSTIPATION EARLY IN SHIFT. NOTIFIED RESIDENT WHO ORDERED DOCUSATE 100 MG BID AND MIRALAX DAILY. ADMINISTERED DOCUSATE WITH BROWN COW. NO BM THUS FAR BUT PT HAS SLEPT THROUGH MOST OF REMAINDER OF SHIFT. BED LOCKED IN LOWEST POSITION. CALL LIGHT LEFT WITHIN REACH. CONTINUING TO MONITOR.
[2023-06-11 09:33] LABS: BASOPHILS ABSOLUTE MAN 0.39 K/mm3 (0.00-0.23); BASOPHILS PERCENT MAN 2 % (0-2); EOSINOPHILS ABSOLUTE MAN 0.19 K/mm3 (0.00-0.68); EOSINOPHILS PERCENT MAN 1 % (0-6); LYMPHOCYTES % ATYPICAL MANUAL 3 % (0-0); LYMPHOCYTES ABSOLUTE MAN 11.75 K/mm3 (0.84-5.20); LYMPHOCYTES PERCENT MAN 56 % (21-46); MONOCYTES ABSOLUTE MAN 1.99 K/mm3 (0.16-1.47); MONOCYTES PERCENT MAN 10 % (4-13); NEUTROPHILS ABSOLUTE MAN 5.58 K/mm3 (1.96-9.15); SEG NEUTROPHILS PERCENT MAN 28 % (41-73); TOTAL CELLS COUNTED 100
--- NOTE | 2023-06-11 17:41 | NUR ---
SHIFT SUMMARY PT IS A&OX4, IND IN THE ROOM, CALLS APPROPRAITELY AND MAKES HIS NEEDS KNOWN. THE PT HAS BEEN BETWEEN 7-9L NC TODAY. WHEN HE TOOK A NAP HE WAS ON THE BIPAP W/ AVAP SETTINGS. THE PT DID GET A LITTLE SOB W/ EXCERTION, BUT IT RESOLVED AFTER RESTING. ON TELE HE HAS BEEN AFIB 90'S-130'S. THE PT IS CURRENTLY IN THE 100'S. HIS BP IS STABLE. HE WAS HAVING SOME SEVERE ABD PAIN THIS MORNING AND I GOT A PRN SUPOSITORY. BY THE TIME I WENT TO GIVE IT, THE PT WAS ALREADY IN THE PROCESS OF HAVING A BOWEL MOVEMENT AND WANTED TO WAIT. WE HAVE HAD NO ACUTE EVENTS THIS SHIFT. SEE NOTE FOR ANYMORE UPDATES. FIRE IGNITION RISK HAS BEEN ASSESSED.
--- NOTE | 2023-06-11 21:22 | NUR ---
ASSUMPTION OF CARE AFTER RECEIVING REPORT FROM DEREK CHAVEZ, THIS RN ASSUMED CARE AT APPROX 1915. DURING INITIAL ENCOUNTER, PATIENT SLEEPING, EASILY AROUSABLE TO VERBAL STIMULI. IS ALERT AND ORIENTED X4. FLAT AFFECT NOTED, COOPERATIVE WITH CARE. ABLE TO COMMUNICATE NEEDS EFFECTIVELY. INDEPENDENT IN ROOM. TELEMETRY SHOWING AFIB 110's. BP STABLE. SBP >105. MAP >65. PO METOPROLOL ADMINISTERED PER MD PARAMETERS AND PER EMAR FOR RATE CONTROL. PATIENT DENIES CHEST PAIN, PRESSURE. IS ON 7L VIA NASAL CANNULA, SATS 90-92%. DENIES SHORTNESS OF BREATH AT REST, DOES REPORT DYSPNEA WITH MOBILITY. USES BIPAP WITH 10L BLEED IN WHILE SLEEPING. HOME TRILOGY NEEDED FOR DISCHARGE. USES URINAL AT BEDSIDE. CALL LIGHT IN REACH.
[2023-06-12] VITALS (9 sets, daily range): BP systolic 99–118; BP diastolic 64–83
[2023-06-12 04:47] LABS: BASOPHILS ABSOLUTE AUTO 0.08 K/mm3 (0.00-0.23); BASOPHILS PERCENT AUTO 1 % (0-2); EOSINOPHILS ABSOLUTE AUTO 0.18 K/mm3 (0.00-0.68); EOSINOPHILS PERCENT AUTO 1 % (0-6); Hemoglobin 9.4 g/dL (13.5-17.5); Mean Corpuscular HGB 21.2 pg (26.0-34.0); Mean Corpuscular HGB Conc 29.4 g/dL (31.5-36.5); Mean Corpuscular Volume 72 fL (80-100); Mean Platelet Volume 11.6 fL (9.1-12.4); Platelet Count 224 K/mm3 (150-400); RDW Coefficient Variation 16.2 % (11.7-14.2); RDW Standard Deviation 41.5 fL (35.1-46.3); Red Blood Cell Count 4.43 M/mm3 (4.30-5.90); White Blood Cell Count 15.53 K/mm3 (4.00-11.30)
[2023-06-12 04:48] LABS: IMMATURE GRAN ABSOLUTE AUTO 0.06 K/mm3 (0.00-0.10); IMMATURE GRAN PERCENT AUTO 0 % (0-1); LYMPHOCYTES ABSOLUTE AUTO 8.34 K/mm3 (0.84-5.20); LYMPHOCYTES PERCENT AUTO 54 % (21-46); MONOCYTES ABSOLUTE AUTO 1.91 K/mm3 (0.16-1.47); MONOCYTES PERCENT AUTO 12 % (4-13); NEUTROPHILS ABSOLUTE AUTO 4.96 K/mm3 (1.96-9.15); NEUTROPHILS PERCENT AUTO 32 % (41-73)
[2023-06-12 05:00] LABS: Bun/Creatinine Ratio 31.7 (12.0-20.0); Calcium, Blood 8.8 mg/dL (8.5-10.1); Creatinine, Blood 1.2 mg/dL (0.60-1.20); Potassium, Blood 3.6 mmol/L (3.5-5.5)
--- NOTE | 2023-06-12 05:21 | NUR ---
SHIFT SUMMARY NO ACUTE CHANGES SINCE ASSUMPTION OF CARE NOTE. PATIENT SLEPT THROUGHOUT SHIFT, EASILY AROUSABLE TO VERBAL STIMULI. REMAINS INDEPENDENT IN ROOM, CALLING APPROPRIATELY FOR ASSISTANCE NEEDED. TELEMETRY SHOWING AFIB 80's-90's. BP SOFT, 90's-110's. MAP >65. USED AVAPS WHILE SLEEPING WITH 10L BLEED IN, SATS >90%. USES URINAL AT BEDSIDE. CALL LIGHT IN REACH. WILL REPORT TO ONCOMING RN.
--- NOTE | 2023-06-12 18:09 | NUR ---
shift summary Pt aOx4, flat affect. sp02>90% on 5l nc, bipap w/ 10l bleedin while sleeping. Telemetry shows afib, hr mostly 80's-90's. AM metoprolol held d/t soft bp not in parameters. Pt used urinal to void. Up to shower this afternoon w/ assistance. Denies pain. Currently sitting on side of bed, eating dinner. Call light in reach.
--- NOTE | 2023-06-12 21:25 | NUR ---
ASSUMPTION OF CARE AFTER RECEIVING REPORT FROM CHARLOTTE CHAVEZ, THIS RN ASSUMED CARE AT APPROX 1915. DURING INITIAL ENCOUNTER, PATIENT SITTING ON SIDE OF BED, REQUESTING TO SHOWER. IS ALERT AND ORIENTED X4. SHOWER AND EVENING CARE PERFORMED INDEPENDENTLY. TELEMETRY SHOWING AFIB 100's-110's DURING INITIAL ENCOUNTER. FOLLOWING SHOWER, PATIENT RATE SUSTAINING 120's-130's. BP SOFT, SBP 100's. MAP >65. EVENING DOSE OF METOPROLOL ADMINISTERED PER EMAR FOR RATE CONTROL. WILL CONTINUE TO MONITOR BP. IS CURRENTLY ON 3L VIA NASAL CANNULA, SATS >90-94%. REPORTS MILD SHORTNESS OF BREATH WITH MOBILITY. USES BIPAP WITH 10L BLEED IN WHILE SLEEPING. VOIDING. MEDIUM SIZE BM THIS EVENING. CALL LIGHT IN REACH.
[2023-06-13] VITALS (7 sets, daily range): BP systolic 102–113; BP diastolic 61–78
[2023-06-13 04:11] LABS: BASOPHILS ABSOLUTE AUTO 0.08 K/mm3 (0.00-0.23); BASOPHILS PERCENT AUTO 1 % (0-2); EOSINOPHILS ABSOLUTE AUTO 0.21 K/mm3 (0.00-0.68); EOSINOPHILS PERCENT AUTO 1 % (0-6); Hematocrit 34.1 % (37.0-53.0); Hemoglobin 9.9 g/dL (13.5-17.5); IMMATURE GRAN ABSOLUTE AUTO 0.06 K/mm3 (0.00-0.10); IMMATURE GRAN PERCENT AUTO 0 % (0-1); LYMPHOCYTES ABSOLUTE AUTO 8.57 K/mm3 (0.84-5.20); LYMPHOCYTES PERCENT AUTO 50 % (21-46); MONOCYTES ABSOLUTE AUTO 2.45 K/mm3 (0.16-1.47); MONOCYTES PERCENT AUTO 14 % (4-13); Mean Corpuscular HGB 21.1 pg (26.0-34.0); Mean Corpuscular Volume 73 fL (80-100); Mean Platelet Volume 11.7 fL (9.1-12.4); NEUTROPHILS ABSOLUTE AUTO 5.63 K/mm3 (1.96-9.15); NEUTROPHILS PERCENT AUTO 33 % (41-73); Platelet Count 223 K/mm3 (150-400); RDW Standard Deviation 42.3 fL (35.1-46.3)
--- NOTE | 2023-06-13 04:43 | NUR ---
SHIFT SUMMARY NO ACUTE CHANGES SINCE ASSUMPTION OF CARE. PATIENT SLEPT THROUGHOUT SHIFT WITH CPAP IN PLACE, 8L BLEED IN AT THIS TIME. SATS >90%. TOLERATED 3L WHILE AWAKE. TELEMETRY SHOWING AFIB 90's-110's. BP REMAINS SOFT, SBP 100's. MAP >65. REMAINS INDEPENDENT IN ROOM. VOIDING. BM THIS SHIFT. CALL LIGHT IN REACH. WILL REPORT TO ONCOMING RN.
[2023-06-13 05:30] LABS: Bun/Creatinine Ratio 30.4 (12.0-20.0); Creatinine, Blood 1.35 mg/dL (0.60-1.20); Potassium, Blood 3.6 mmol/L (3.5-5.5)
--- NOTE | 2023-06-14 04:31 | NUR ---
SHIFT SUMMARY NO ACUTE CHANGES OVERNIGHT. PT NEEDING 4-5L VIA NC TO MAINTAIN SPO2 >90%. ON CPAP FOR SLEEP WITH 7L BLEED IN. RT WAS UNABLE TO COMPLETE HOME O2 EVAL DURING THIS SHIFT. THIS RN ASKED BEVERAGE SPECIALIST RT TO PASS ALONG NEEDING TO COMPLETE HOME O2 EVAL FIRST THING IN MORNING SO THAT PATIENT CAN BE DISCHARGED. OTHERWISE VITALS REMAINS STABLE. AFIB WITH HR 90'S. PT USING URINAL INDEPENDENTLY. BED IN LOWEST POSITION AND CALL LIGHT WITHIN REACH. THIS RN WILL REPORT TO ONCOMING DAYSHIFT RN.
[2023-06-14 05:40] LABS: Hematocrit 35.7 % (37.0-53.0); Hemoglobin 10.4 g/dL (13.5-17.5); Mean Corpuscular HGB 21.1 pg (26.0-34.0); Mean Corpuscular HGB Conc 29.1 g/dL (31.5-36.5); Mean Corpuscular Volume 72 fL (80-100); Platelet Count 209 K/mm3 (150-400); RDW Standard Deviation 41.5 fL (35.1-46.3); Red Blood Cell Count 4.93 M/mm3 (4.30-5.90); White Blood Cell Count 14.04 K/mm3 (4.00-11.30)
[2023-06-14 06:08] LABS: Mean Platelet Volume 11.8 fL (9.1-12.4)
[2023-06-14 06:47] LABS: Calcium, Blood 9.4 mg/dL (8.5-10.1); Creatinine, Blood 1.09 mg/dL (0.60-1.20); Potassium, Blood 3.7 mmol/L (3.5-5.5)
[2023-06-14 08:07] VITALS: BP 110/81
[2023-06-14 09:19] LABS: BASOPHILS ABSOLUTE MAN 0.14 K/mm3 (0.00-0.23); BASOPHILS PERCENT MAN 1 % (0-2); EOSINOPHILS PERCENT MAN 0 % (0-6); LYMPHOCYTES % ATYPICAL MANUAL 1 % (0-0); LYMPHOCYTES ABSOLUTE MAN 9.82 K/mm3 (0.84-5.20); LYMPHOCYTES PERCENT MAN 69 % (21-46); MONOCYTES ABSOLUTE MAN 0.56 K/mm3 (0.16-1.47); MONOCYTES PERCENT MAN 4 % (4-13); NEUTROPHILS ABSOLUTE MAN 3.51 K/mm3 (1.96-9.15); SEG NEUTROPHILS PERCENT MAN 25 % (41-73); TOTAL CELLS COUNTED 100
--- NOTE | 2023-06-14 10:40 | NUR ---
DISCHARGE NOTE PT WAS ALERT AND ORIENTED X 4, VSS. SPO2 MAINTAINED >95% VIA 2-3L NC. PT WAS DISCHARGED W/ HOME O2 AND NECESSARY EQUIPMENT. HE DEMONSTRATED UNDERSTANDING OF OXYGEN THERAPY EQUIPMENT. THIS RN DISCUSSED DISCHARGE INSTRUCTIONS INCLUDING POST HOSPITAL FOLLOW UP APPOINTMENTS, INCLUDING THE APPOINTMENT ALREADY SCHEDULED W/ PULMONOLOGY AND PCP FOLLOW UP APPOINTMENT. THIS RN ALSO DISCUSSED DISCHARGE MEDICATIONS, DIET, CHECKING BP, HR AND WEIGHT AT HOME. PT WAS SENT HOME W/ DISCHARGE INSTRUCTIONS WELL ALL OF PERSONAL BELONGINGS. THIS RN ALSO REMOVED ALL IV ACCESS. PT LEFT PCU AT APPROX. 1000 VIA WHEELCHAIR AND WAS ESCORTED BY MALINDA AUSTIN.
== END 2023-06-14 10:30 | disposition home or self-care (01) | DRG 291 ==
LOC: ER 04:22 → PCU 08:54
PROVIDERS: Emergency Medicine; Family Medicine; Internal Medicine; Student in an Organized Health Care Education/Training Program; ADMIT Student in an Organized Health Care Education/Training Program
PROC: 5A09357 Assistance with Respiratory Ventilation, Less than 24 Consecutive Hours, Continuous Positive Airway Pressure (ICD-10-PCS; principal; 2023-06-03)
DX: I11.0 Hypertensive heart disease with heart failure (principal); I50.33 Acute on chronic diastolic (congestive) heart failure; J96.21 Acute and chronic respiratory failure with hypoxia; I48.19 Other persistent atrial fibrillation; C91.90 Lymphoid leukemia, unspecified not having achieved remission; I50.810 Right heart failure, unspecified; I27.20 Pulmonary hypertension, unspecified; K76.0 Fatty (change of) liver, not elsewhere classified; G47.33 Obstructive sleep apnea (adult) (pediatric); E66.9 Obesity, unspecified; K21.9 Gastro-esophageal reflux disease without esophagitis; E11.42 Type 2 diabetes mellitus with diabetic polyneuropathy; D63.8 Anemia in other chronic diseases classified elsewhere; J43.9 Emphysema, unspecified; Z87.891 Personal history of nicotine dependence; Z86.718 Personal history of other venous thrombosis and embolism; Z86.711 Personal history of pulmonary embolism; Z99.81 Dependence on supplemental oxygen; Z88.2 Allergy status to sulfonamides; Z88.8 Allergy status to other drugs, medicaments and biological substances; Z11.52 Encounter for screening for COVID-19; Z68.36 Body mass index [BMI] 36.0-36.9, adult
CPT/HCPCS: 0202U; 36415; 71045; 71046; 80048; 80053; 82947; 83735; 83880; 84145; 84484; 85025; 93005; 93010; 94640; 94660; 94664; 94761; 94762; 96374; 96375; 96376; 99285-25; A9270; J1815; J1940

== ENCOUNTER 2023-06-19 14:11 | Emergency (ER) | payer OTHER ==
[~2023-06-19] VITALS: Ht 185.4 cm; Wt 120.2 kg
[2023-06-19 15:59] LABS: Hematocrit 33.3 % (37.0-53.0); Hemoglobin 9.7 g/dL (13.5-17.5); Mean Corpuscular HGB 21.2 pg (26.0-34.0); Mean Corpuscular HGB Conc 29.1 g/dL (31.5-36.5); Mean Corpuscular Volume 73 fL (80-100); Platelet Count 217 K/mm3 (150-400); RDW Coefficient Variation 16.6 % (11.7-14.2); RDW Standard Deviation 42.7 fL (35.1-46.3); Red Blood Cell Count 4.58 M/mm3 (4.30-5.90); White Blood Cell Count 24.18 K/mm3 (4.00-11.30)
[2023-06-19 16:10] LABS: Mean Platelet Volume 11.9 fL (9.1-12.4)
[2023-06-19 16:22] LABS: Albumin, Blood 3.4 g/dL (3.4-5.0); Albumin/Globulin Ratio 0.8 (0.8-1.8); Bilirubin, Total 0.7 mg/dL (0.1-1.0); Calcium, Blood 8.7 mg/dL (8.5-10.1); Creatinine, Blood 1.04 mg/dL (0.60-1.20); Potassium, Blood 4.8 mmol/L (3.5-5.5); Total Protein, Blood 7.4 g/dL (6.4-8.2)
[2023-06-19 16:49] LABS: BASOPHILS PERCENT MAN 0 % (0-2); EOSINOPHILS PERCENT MAN 0 % (0-6); LYMPHOCYTES ABSOLUTE MAN 8.94 K/mm3 (0.84-5.20); LYMPHOCYTES PERCENT MAN 37 % (21-46); MONOCYTES ABSOLUTE MAN 0.96 K/mm3 (0.16-1.47); MONOCYTES PERCENT MAN 4 % (4-13); NEUTROPHILS ABSOLUTE MAN 14.26 K/mm3 (1.96-9.15); SEG NEUTROPHILS PERCENT MAN 59 % (41-73); TOTAL CELLS COUNTED 100
[2023-06-19] MEDS ORDERED: HYDR1TAB94 PO (17:30)
[2023-06-19 19:55] LABS: PCO2 Arterial 34.5 mmHg (35-45); PO2 Arterial 50.3 mmHg (80-100); pH Blood Arterial 7.44 (7.35-7.45)
[2023-06-19 21:11] VITALS: BP 110/72
== END 2023-06-19 22:01 | disposition home or self-care (01) ==
LOC: ER 14:11
PROVIDERS: Emergency Medicine; Physician Assistant
DX: R07.89 Other chest pain (principal); W18.30XA Fall on same level, unspecified, initial encounter; K21.9 Gastro-esophageal reflux disease without esophagitis; E11.40 Type 2 diabetes mellitus with diabetic neuropathy, unspecified; I11.0 Hypertensive heart disease with heart failure; I50.9 Heart failure, unspecified; I48.91 Unspecified atrial fibrillation; E66.9 Obesity, unspecified; Z88.2 Allergy status to sulfonamides; Z88.8 Allergy status to other drugs, medicaments and biological substances; Z79.899 Other long term (current) drug therapy; Z79.4 Long term (current) use of insulin; Z79.01 Long term (current) use of anticoagulants
CPT/HCPCS: 36600; 71046; 80053; 82803; 83880; 85025; A9270